=== PATIENT | male | born 1955 | race Caucasian/White ===

== ENCOUNTER 2020-02-27 15:23 | Outpatient (REF) | payer BC, SELFPAY | END 2020-02-27 15:24 | disposition home or self-care (01) | LOC: HO.LNP 15:23 | PROVIDERS: Visit Provider Internal Medicine | DX: Z20.828 Contact with and (suspected) exposure to other viral communicable diseases (principal) | CPT/HCPCS: U0003 ==

== ENCOUNTER → 2020-03-25 14:53 | Outpatient (BNVA) | payer SELFPAY | PROVIDERS: PCP Internal Medicine; Visit Provider Internal Medicine | DX: Z02.79 Encounter for issue of other medical certificate (principal) ==

== ENCOUNTER 2021-09-05 07:40 | Emergency (ER) | payer BC, SELFPAY ==
--- NOTE | ~2021-09-05 | CT_ITS ---
EXAMINATION: CT angio head neck CLINICAL INFORMATION: Dizziness. COMPARISON: CT scan of the head 09/05/2021. TECHNIQUE: Marketing Segment Manager images were obtained. A CT angiogram of the head and neck was performed in the arterial phase after the intravenous administration of 70 mL Omnipaque 350. Delayed postcontrast images of the head were also obtained. MIP reconstructions were generated in multiple orientations at the acquisition workstation. Multiple three-dimensional surface rendered images and maximum intensity projection images were generated on a dedicated 3-D lab workstation. Arterial stenoses are measured in accordance with NASCET criteria or similar method if applicable. This CT examination was performed using dose optimization techniques as appropriate, including one or more of the following: Automated exposure control, iterative reconstruction, and adjustment of technique factors (mA and/or kVp) according to patient size (this includes techniques or standardized protocols for targeted exams where dose is matched to indication/reason for exam). Total exam dose-length product 1524 mGy-cm FINDINGS: Head: Postcontrast images reveal no abnormal intracranial mass or enhancement. There is no intracranial mass effect or midline shift. No abnormal extra-axial collection. Lateral and third ventricles are normal. No hydrocephalus. Lozoya-white matter differentiation is preserved and there is no evidence of acute territorial infarct. The calvarium and skull base are intact. Mastoid air cells and middle ear cavities are well aerated. There is mild to moderate paranasal sinus disease primarily affecting the right anterior ethmoid air cells. CT angiogram neck: The aortic arch apex is normal. Origins of the major aortic branches are widely patent. Common carotid arteries and carotid bifurcations are normal. No stenosis of the extracranial internal carotid arteries. The cervical segments of the vertebral arteries as well as their origins are patent. CT angiogram head: Intracranial internal carotid arteries are normal. The intradural vertebral artery segments and basilar artery are normal. Anterior, middle, and posterior cerebral artery complexes are unremarkable. No intracranial large vessel occlusion. The timing of the contrast injection provides adequate opacification of the dural venous sinuses which are patent. Other: Soft tissues of the neck including the thyroid gland are normal. Visualized lung apices are clear. No acute osseous finding. Specifically no worrisome lytic or blastic osseous lesion. CT/CT angio head neck IMPRESSION: Unremarkable CT angiogram of the head and neck. No evidence of acute territorial infarct. No abnormal intracranial mass or enhancement. There is no stenosis of the cervical carotid or vertebral arteries. No intracranial large vessel occlusion.
--- NOTE | ~2021-09-05 | CT_ITS ---
EXAMINATION: CT HEAD WITHOUT CONTRAST CLINICAL INFORMATION: Dizziness. Headaches. COMPARISON: None TECHNIQUE: Contiguous axial imaging was performed from the skull base to vertex without intravenous administration of contrast. This CT examination was performed using dose optimization techniques as appropriate, variously including the following: *Automated exposure control *Adjustment of mA and/or kV according to patient size (this includes techniques or standardized protocols for targeted exams where dose is matched to indication/reason for exam; i.e. extremities or head) *Use of iterative reconstruction technique DLP: 759 mGy-cm FINDINGS: There is no evidence of acute intracranial hemorrhage or territorial infarction. No abnormal mass effect or midline shift is seen. [place]ozoya to white matter differentiation is well preserved. No extra-axial fluid collections are identified. The ventricles are normal in size. There is no abnormal attenuation within the brain parenchyma. The osseous structures and soft tissues are normal. The mastoid air cells and visualized portions of the paranasal sinuses are well aerated. CT/CT head/brain wo con IMPRESSION: No acute intracranial hemorrhage or mass effect.
[2021-09-05 07:47] VITALS: BP 145/82; PULSE 76; RESP 16; TEMP 35.7; O2SAT 97; BMI 29.4
[2021-09-05 08:00] LABS: MANUAL DIFF FLAG NO
[2021-09-05 08:02] LABS: Basophils Absolute Auto 0.1 X10*3/uL (0.0-0.2); Basophils Percent Auto 0.8 % (0-2); Eosinophils Absolute Auto 0.5 X10*3/uL (0.0-0.4); Eosinophils Percent Auto 6.8 % (0-4); Hematocrit 43.5 % (42.0-52.0); Imm Gran Abs Auto 0.01 X10*3/uL (0.00-0.03); Imm Gran Pct Auto 0.1 % (0.0-0.4); Lymphocytes Absolute Auto 2.4 X10*3/uL (1.2-4.9); Lymphocytes Percent Auto 31.1 % (20-40); Mean Corpuscular HGB Conc 34.5 g/dl (31.0-36.0); Mean Corpuscular Hemoglobin 30.9 pg (27.0-33.0); Mean Corpuscular Volume 89.7 fL (80.0-98.0); Mean Platelet Volume 8.8 fL (9.4-12.4); Monocytes Absolute Auto 0.6 X10*3/uL (0.1-1.2); Monocytes Percent Auto 7.9 % (2-11); Neutrophils Absolute Auto 4.2 x10*3/uL (2.0-8.3); Neutrophils Percent Auto 53.3 % (45-73); Platelet Count 244 X10*3/uL (160-400); Red Blood Count 4.85 X10*6/uL (4.60-5.80); Red Cell Distribution Width 12.9 % (11.0-16.0); White Blood Count 7.8 X10*3/uL (4.8-10.8)
[2021-09-05 08:16] LABS: Alanine Aminotransferase 20 U/L (0-40); Alkaline Phosphatase 62 U/L (39-117); Anion Gap 13 (12-20); Aspartate Amino Transferase 21 U/L (5-37); Bilirubin Total 0.9 mg/dL (0.0-1.0); Blood Urea Nitrogen 19 mg/dL (9-16); Calcium 9.6 mg/dL (8.4-10.2); Carbon Dioxide 20 mmol/L (22-29); Chloride 111 mmol/L (96-108); Creatinine Clr Calc Pharmacy 75.6; Estimated Glomerular Filt Rate > 60; Glucose Random 110 mg/dL (60-115); Potassium 3.8 mmol/L (3.3-5.1); Sodium 140 mmol/L (135-145); Total Protein 7.3 g/dL (6.5-8.0)
--- NOTE | 2021-09-05 10:08 | ECG_ITS ---
Test Reason : DIZZINESS Blood Pressure : / mmHG Vent. Rate : 054 BPM Atrial Rate : 054 BPM P-R Int : 148 ms QRS Dur : 090 ms QT Int : 416 ms P-R-T Axes : 043 011 050 degrees QTc Int : 394 ms Sinus bradycardia Otherwise normal ECG When compared with ECG of 17-SEP-2010 11:13, Vent. rate has decreased BY 30 BPM Referred By: Adamaris Rodriguez Electronically Signed By:Alpesh Marshall
--- NOTE | 2021-09-05 10:10 | ED_ITS ---
HPI - Dizziness General Chief Complaint: Dizziness Stated Complaint: VERTIGO Time Seen by Provider: 09/05/21 10:08 Source: patient and family Mode of arrival: ambulatory Limitations: no limitations History of Present Illness HPI Narrative: 66 yo male hx of HLD here with c/o on anytime he went to get up from laying down he felt severely dizzy with issue with equilibrium he also noted that day he felt off with vision in his left eye like it was blurry looking to one side that only lasted 5 minutes. He did notify his PCP who instructed him to monitor his symptoms. This continued on and off (not the vision) but dizziness with position changes up until this morning everytime he gets up from a lying po sition. He notes a headache R parietal for the last couple of months. He has had allergy and URI symptoms taking claritin PRN. This has not happened before he has no CP/SOB. No other complaints. MD elicited complaint: lightheadedness and disequilibrium Onset (ago): day(s) ( ) Timing: sudden onset and intermittent Severity: moderate Description: lightheadedness and off-balance Context: change in body position (anytime he gets up after laying down) Exacerbating factors: movement/ambulation and change in body position Relieving factors: remaining still Associated symptoms: nasal congestion and other (headache, feels near syncopal) Associated neuro symptoms: vision changes (prior to this noted L visual changes for 5 minutes while at work) Related Data Previous Rx's Medication Instructions Recorded doxycycline hyclate 100 mg capsule 100 mg PO BID 7 Days #14 cap 09/05/21 meclizine 25 mg tablet 25 mg PO TID PRN #30 tab 09/05/21 Allergies Allergy/AdvReac Type Severity Reaction Status Date / Time amoxicillin [AMOXICILLIN] Allergy Mild HIVES Unverified 12/27/19 15:07 Review of Systems Review of Systems: Constitutional : No Fever, No Chills, No Fatigue ENT/Mouth : No sore throat, pos Rhinorrhea Eyes: No Eye Pain, No Swelling, No Redness Cardiovascular : No Chest Pain, No SOB, No Dyspnea on Exertion Respiratory : No Cough, No Sputum Gastrointestinal : No Nausea, No Vomiting, No Diarrhea, No abdominal Pain Genitourinary : No Dysuria, No Urinary Frequency, No Hematuria, Musculoskeletal : No joint pain, No Myalgias, No Joint Swelling Skin : No Skin Lesions, No rash Neuro : No Weakness, No Numbness, pos Dizziness, positive Headache Psych : No Anxiety/Panic, No Depression Heme/Lymph: No Bruising, No Bleeding,No Lymphadenopathy Endocrine : No Polyuria, No Polydipsia All other systems reviewed and are negative [facility] Past Medical History Attestation statement: The following information was validated with the patient. Medical History (Updated 09/05/21 @ 15:14 by Adamaris Rodriguez DO) Hyperlipidemia Social History Social History (Updated 09/05/21 @ 10:25 by Adamaris Rodriguez DO) Patient Tobacco Use Status: Never used Tobacco Advance Directives: Yes Advance Directives Information Provided: No Advance Directives on File: No Physical Exam Vital Signs: Vital Signs: Last Vital Signs Temp 97.9 F 09/05/21 14:11 Pulse 55 09/05/21 14:11 Resp 18 09/05/21 14:11 BP 158/84 H 09/05/21 14:11 Pulse Ox 98 09/05/21 14:11 BMI result Body Mass Index 29.4 Appearance: Alert. Oriented X3. No acute distress. Eyes: Pupils equal, round and reactive to light. ENT: Pharynx normal. TMs normal Neck: Normal inspection. Neck supple. CVS: Normal heart rate and rhythm. Pulses normal. Respiratory: No respiratory distress. Breath sounds normal. Abdomen: Soft and nontender. Skin: Skin warm and dry. Normal skin color. Normal skin turgor. Extremities: No lower extremity edema. No calf ttp Neuro: Oriented X 3. No motor deficit. No sensory deficit. no drift, no ataxia Course Course Course Narrative: negative workup at this time will obtain CTA to look at carotids and vertebral arteries at this time CTA negative other than ethmoid sinusitis MDM - Dizziness MDM Narrative Medical decision making narrative: 66 yo male with hx of HLD here with c/o some visual changes 2 days ago and now with intermittent dizziness related position changes - does report some recent URI symptoms which could be triggering his dizziness. At this time will need labs, EKG, ortho VS, CT head for mass. IVF. Lab Data Result diagrams: 09/05/21 07:57 09/05/21 07:57 Labs: Lab Results 09/05/21 09/05/21 09/05/21 Range/Units 07:57 07:57 07:57 WBC 7.8 (4.8-10.8) X10*3/uL RBC 4.85 (4.60-5.80) X10*6/uL Hgb 15.0 (14.0-18.0) g/dl Hct 43.5 (42.0-52.0) % MCV 89.7 (80.0-98.0) fL MCH 30.9 (27.0-33.0) pg MCHC 34.5 (31.0-36.0) g/dl RDW 12.9 (11.0-16.0) % Plt Count 244 (160-400) X10*3/uL MPV 8.8 L (9.4-12.4) fL Immature Gran % (Auto) 0.1 (0.0-0.4) % Neut % (Auto) 53.3 (45-73) % Lymph % (Auto) 31.1 (20-40) % [place] % (Auto) 7.9 (2-11) % Eos % (Auto) 6.8 H (0-4) % Baso % (Auto) 0.8 (0-2) % Lymph # (Auto) 2.4 (1.2-4.9) X10*3/uL [place] # (Auto) 0.6 (0.1-1.2) X10*3/uL Eos # (Auto) 0.5 H (0.0-0.4) X10*3/uL Baso # (Auto) 0.1 (0.0-0.2) X10*3/uL Abs Immat Gran (auto) 0.01 (0.00-0.03) X10*3/uL Absolute Neuts (auto) 4.2 (2.0-8.3) x10*3/uL Absolute Nucleated RBC 0.000 (0.0-0.012) X10*3/uL Nucleated RBC % (auto) 0.0 (0.0-0.2) /100WBC Sodium 140 (135-145) mmol/L Potassium 3.8 (3.3-5.1) mmol/L Chloride 111 H (96-108) mmol/L Carbon Dioxide 20 L (22-29) mmol/L Anion Gap 13 (12-20) BUN 19 H (9-16) mg/dL Creatinine 1.13 (0.5-1.4) mg/dL Estim Creat Clear Calc 75.6 Estimated GFR > 60 Random Glucose 110 (60-115) mg/dL Calcium 9.6 (8.4-10.2) mg/dL Total Bilirubin 0.9 (0.0-1.0) mg/dL AST 21 (5-37) U/L ALT 20 (0-40) U/L Alkaline Phosphatase 62 (39-117) U/L Troponin I High Sens < 3.5 (<3.5-35.0) ng/L Total Protein 7.3 (6.5-8.0) g/dL Albumin 4.0 (3.5-5.0) g/dL COVID-19 (IZZY) (Negative) COVID-19 Clin Com 09/05/21 Range/Units 10:15 WBC (4.8-10.8) X10*3/uL RBC (4.60-5.80) X10*6/uL Hgb (14.0-18.0) g/dl Hct (42.0-52.0) % MCV (80.0-98.0) fL MCH (27.0-33.0) pg MCHC (31.0-36.0) g/dl RDW (11.0-16.0) % Plt Count (160-400) X10*3/uL MPV (9.4-12.4) fL Immature Gran % (Auto) (0.0-0.4) % Neut % (Auto) (45-73) % Lymph % (Auto) (20-40) % [place] % (Auto) (2-11) % Eos % (Auto) (0-4) % Baso % (Auto) (0-2) % Lymph # (Auto) (1.2-4.9) X10*3/uL [place] # (Auto) (0.1-1.2) X10*3/uL Eos # (Auto) (0.0-0.4) X10*3/uL Baso # (Auto) (0.0-0.2) X10*3/uL Abs Immat Gran (auto) (0.00-0.03) X10*3/uL Absolute Neuts (auto) (2.0-8.3) x10*3/uL Absolute Nucleated RBC (0.0-0.012) X10*3/uL Nucleated RBC % (auto) (0.0-0.2) /100WBC Sodium (135-145) mmol/L Potassium (3.3-5.1) mmol/L Chloride (96-108) mmol/L Carbon Dioxide (22-29) mmol/L Anion Gap (12-20) BUN (9-16) mg/dL Creatinine (0.5-1.4) mg/dL Estim Creat Clear Calc Estimated GFR Random Glucose (60-115) mg/dL Calcium (8.4-10.2) mg/dL Total Bilirubin (0.0-1.0) mg/dL AST (5-37) U/L ALT (0-40) U/L Alkaline Phosphatase (39-117) U/L Troponin I High Sens (<3.5-35.0) ng/L Total Protein (6.5-8.0) g/dL Albumin (3.5-5.0) g/dL COVID-19 (IZZY) Negative (Negative) COVID-19 Clin Com See Note ECG Data Attestation: I personally reviewed and interpreted this ECG as follows: ECG interpretation date: 09/05/21 ECG interpretation time: 10:40 Interpretation: Rate: 54 Rhythm: sinus bradycardid Kirkman: normal Normal P waves. Normal LILLIE. Normal QRS complex. ST T wave : normal no VANESSA qTC: normal prior studies: no acute ischemia The study has been interpreted contemporaneously by me. . Discharge Plan Discharge Clinical Impression: Dizziness Acute ethmoidal sinusitis Qualifiers: Recurrence: non-recurrent Qualified Code(s): J01.20 - Acute ethmoidal sinusitis, unspecified Patient Disposition: Home, Self-Care Instructions: Sinusitis (ED), Dizziness (ED) Additional Instructions: return to ED for any worsening symptoms or concerns follow up with your doctor this week CT/CT angio head neck IMPRESSION: Unremarkable CT angiogram of the head and neck. No evidence of acute territorial infarct. No abnormal intracranial mass or enhancement. There is no stenosis of the cervical carotid or vertebral arteries. No intracranial large vessel occlusion.? Prescriptions: New doxycycline hyclate 100 mg capsule 100 mg PO BID 7 Days Qty: 14 0RF meclizine 25 mg tablet 25 mg PO TID PRN (Reason: dizziness) Qty: 30 0RF Stand Alone Forms: Work/School Release
[2021-09-05 10:17] VITALS: BP 151/79; PULSE 74; RESP 18; O2SAT 100
[2021-09-05 10:29] VITALS: BP 151/79; PULSE 60
[2021-09-05 10:30] VITALS: BP 150/100; BP 153/93; PULSE 66; PULSE 71
[2021-09-05 10:37] LABS: Troponin-I High Sensitivity < 3.5 ng/L (<3.5-35.0)
[2021-09-05 10:52] LABS: COVID-19 Test Negative (Negative); IDNOW Serial# 16C4AD1C
[2021-09-05] MEDS: Meclizine HCl 25 MG TABLET PO (10:55)
[2021-09-05] MEDS: 0.9 % Sodium Chloride 1,000 ML 999 ML IV (10:55)
[2021-09-05 12:53] VITALS: BP 146/85; PULSE 68; RESP 16; O2SAT 97
[2021-09-05] MEDS: iohexoL 350 MG/ML 75 ML INFUS..BTL 70 ML IV (14:10)
[2021-09-05 14:11] VITALS: BP 158/84; PULSE 55; RESP 18; TEMP 36.6; O2SAT 98
== END 2021-09-05 15:55 | disposition home or self-care (01) ==
PROVIDERS: Emergency Provider Emergency Medicine; PCP Internal Medicine
DX: J01.20 Acute ethmoidal sinusitis, unspecified (principal); R42 Dizziness and giddiness; R51.9 Headache, unspecified; Z79.899 Other long term (current) drug therapy; Z20.822 Contact with and (suspected) exposure to COVID-19
CPT/HCPCS: 36415; 70450; 70496; 70498; 80053; 84484; 85025; 87635; 93005; 99283; Q9967

== ENCOUNTER 2021-09-12 07:20 | Outpatient (REF) | payer BC, SELFPAY ==
[2021-09-12 08:39] LABS: Cholesterol 171 mg/dL; HDL Cholesterol 52 mg/dL; LDL Cholesterol Calculated 106 mg/dl; Triglycerides 68 mg/dL
[2021-09-12 08:44] LABS: Prostate Specific Antigen 0.49 ng/mL (<0.05-4.0)
== END 2021-09-12 07:21 | disposition home or self-care (01) ==
LOC: HO.LAB 07:20
PROVIDERS: PCP Internal Medicine; Visit Provider Internal Medicine
DX: Z12.5 Encounter for screening for malignant neoplasm of prostate (principal); N40.0 Benign prostatic hyperplasia without lower urinary tract symptoms; E78.00 Pure hypercholesterolemia, unspecified
CPT/HCPCS: 36415; 80061; 84153

== ENCOUNTER → 2022-02-17 15:11 | Outpatient (BNVA) | payer SELFPAY | PROVIDERS: PCP Internal Medicine; Visit Provider Physician Assistant | DX: Z02.79 Encounter for issue of other medical certificate (principal) ==

== ENCOUNTER 2023-07-18 12:08 | Outpatient (REF) | payer BC, SELFPAY ==
--- NOTE | ~2023-07-18 | XR_ITS ---
EXAMINATION: XR CHEST CLINICAL INFORMATION: Shortness of breath. COMPARISON: Chest radiograph dated 09/17/2010. TECHNIQUE: 2 views of the chest were obtained. FINDINGS: The lungs are clear. The cardiomediastinal silhouette is normal in size. There is no pleural effusion or pneumothorax. No acute osseous abnormality. XR/XR chest 2V IMPRESSION: No acute cardiopulmonary findings.
[2023-07-18 12:27] LABS: MANUAL DIFF FLAG NO
[2023-07-18 12:41] LABS: Basophils Absolute Auto 0.1 X10*3/uL (0.0-0.2); Basophils Percent Auto 0.7 % (0-2); Eosinophils Absolute Auto 0.2 X10*3/uL (0.0-0.4); Eosinophils Percent Auto 2.3 % (0-4); Hematocrit 43.2 % (42.0-52.0); Hemoglobin 14.6 g/dl (14.0-18.0); Imm Gran Abs Auto 0.02 X10*3/uL (0.00-0.03); Imm Gran Pct Auto 0.2 % (0.0-0.4); Mean Corpuscular HGB Conc 33.8 g/dl (31.0-36.0); Mean Corpuscular Hemoglobin 30.4 pg (27.0-33.0); Mean Platelet Volume 8.9 fL (9.4-12.4); Monocytes Absolute Auto 0.7 X10*3/uL (0.1-1.2); Monocytes Percent Auto 8.4 % (2-11); Neutrophils Absolute Auto 5.2 x10*3/uL (2.0-8.3); Neutrophils Percent Auto 63.4 % (45-73); Platelet Count 223 X10*3/uL (160-400); Red Cell Distribution Width 13.2 % (11.0-16.0); White Blood Count 8.1 X10*3/uL (4.8-10.8)
[2023-07-18 13:03] LABS: D Dimer High Sensitivity 3345 NG/ML
[2023-07-18 13:10] LABS: Alanine Aminotransferase 15 U/L (0-40); Albumin Level 4.2 g/dL (3.5-5.0); Alkaline Phosphatase 82 U/L (39-117); Anion Gap 10 (12-20); Aspartate Amino Transferase 21 U/L (5-37); Bilirubin Total 0.7 mg/dL (0.0-1.0); Blood Urea Nitrogen 17 mg/dL (9-16); C Reactive Protein 1.16 mg/dL (< or = 0.50); Calcium 9.9 mg/dL (8.4-10.2); Carbon Dioxide 24 mmol/L (22-29); Chloride 108 mmol/L (96-108); Cholesterol 166 mg/dL (<200); Estimated Glomerular Filt Rate 59; Glucose Random 94 mg/dL (60-115); Sodium 138 mmol/L (135-145); Total Protein 8.2 g/dL (6.5-8.0)
[2023-07-18 13:14] LABS: B Type Natriuretic Peptide 46 pg/mL (<100)
[2023-07-19 11:04] LABS: Free Prostate Spec Ag 0.2 ng/mL; Percent Free Prostate Spec Ag 29 % (calc) (>25); Prostate Specific Ag Total 0.7 ng/mL (< OR = 4.0)
== END 2023-07-18 12:09 | disposition home or self-care (01) ==
LOC: HO.LAB 12:08
PROVIDERS: PCP Internal Medicine; Visit Provider Internal Medicine
DX: Z12.5 Encounter for screening for malignant neoplasm of prostate (principal); R06.2 Wheezing; E78.00 Pure hypercholesterolemia, unspecified; R35.1 Nocturia
CPT/HCPCS: 36415; 71046; 80053; 82465; 82550; 83880; 84154; 85025; 85379; 86140

== ENCOUNTER 2023-07-18 13:17 | Inpatient (IN) | payer BC, MEDICARE, SELFPAY ==
--- NOTE | ~2023-07-18 | CT_ITS ---
EXAMINATION: CT ANGIOGRAM OF THE CHEST WITH AND WITHOUT CONTRAST (CT PULMONARY ANGIOGRAM FOR PE) CLINICAL INFORMATION: Reason for Exam SOB. Elevated D dimer. PE? COMPARISON: None TECHNIQUE: Prior to contrast administration, noncontrast localization images were obtained. Subsequently, multidetector volumetric imaging was performed from the thoracic inlet to below the diaphragms following the administration of 65 mL Omnipaque 350 intravenous contrast. No contrast reaction reported Sagittal, coronal, and MIP oblique sagittal reformatted images were obtained on the CT workstation, uploaded to PACS, and reviewed. This CT examination was performed using dose optimization techniques as appropriate, variously including the following: *Automated exposure control *Adjustment of mA and/or kV according to patient size (this includes techniques or standardized protocols for targeted exams where dose is matched to indication/reason for exam; i.e. extremities or head) *Use of iterative reconstruction technique Total exam dose-length product 382 mGy-cm FINDINGS: QUALITY OF STUDY/CONTRAST BOLUS: Satisfactory. PULMONARY ARTERIES: There are multiple occlusive and nonocclusive clots identified in left and right pulmonary arteries without saddle bullae seen. THORACIC AORTA: No aneurysm. LUNG: No focal consolidation, nodules or masses. PLEURA: No pleural effusion or pneumothorax. MEDIASTINUM: Normal heart size. No pericardial effusion. No hilar or mediastinal lymphadenopathy. No evidence of septal bowing or right heart strain. CORONARY ARTERY CALCIFICATION: None visualized on this study. CHEST WALL/AXILLA: No axillary or internal mammary lymphadenopathy. OSSEOUS STRUCTURES: No acute or suspicious osseous abnormality. UPPER ABDOMEN: Unremarkable. No reflux of contrast into the hepatic veins to suggest elevated right heart pressures. CT/CT angio chest PE protocol IMPRESSION: Extensive bilateral pulmonary emboli. No evidence of right heart strain. VTE: positive. This critical result was discussed with ADEN Caballero at 1645 on 07/18/2023 and it was ascertained that the content and urgency of the report was understood at the time of direct communication.
--- NOTE | ~2023-07-18 | US_ITS ---
EXAMINATION: US VENOUS ULTRASOUND WITH DOPPLER LOWER EXTREMITY, BILATERAL CLINICAL INFORMATION: Swelling COMPARISON: Left lower extremity swelling on 06/09/2015 TECHNIQUE: Ultrasound of the deep veins is performed from the hip to the calf with compression sonography and color and pulse Doppler assessment. Spectral analysis with color-flow imaging is performed. FINDINGS: RIGHT: There is normal venous compression and respiratory variation and augmented flow. The visualized common femoral vein, superficial femoral vein, profunda femoral vein, popliteal vein, and the trifurcation region shows no evidence of deep venous thrombosis. There is no significant popliteal fossa cyst. LEFT: There is normal venous compression and respiratory variation and augmented flow. The visualized common femoral vein, superficial femoral vein, profunda femoral vein, popliteal vein, and the trifurcation region shows no evidence of deep venous thrombosis. There is a 3.8 x 1.1 x 1.5 cm complex fluid collection left popliteal fossa. Nonocclusive thrombus in the left gastrocnemius vein. If the patient's symptoms persist, followup ultrasound in 5 days 7 days might be of value to exclude proximal propagation from a non-visualized calf vein. US/US venous duplex LE BI IMPRESSION: Nonocclusive left gastrocnemius vein thrombus.
[2023-07-18 13:35] VITALS: BP 173/101; PULSE 88; RESP 18; TEMP 36.8; O2SAT 97; BMI 29.4
--- NOTE | 2023-07-18 13:36 | ECG_ITS ---
Test Reason : SOB Blood Pressure : / mmHG Vent. Rate : 070 BPM Atrial Rate : 070 BPM P-R Int : 158 ms QRS Dur : 084 ms QT Int : 380 ms P-R-T Axes : 053 -08 037 degrees QTc Int : 410 ms Normal sinus rhythm Normal ECG When compared with ECG of 05-SEP-2021 10:04, No significant change was found Referred By: Jignesh Caballero Electronically Signed By:Alpesh Marshall
--- NOTE | 2023-07-18 13:41 | ED.GENADULT ---
HPI - General Adult General Chief complaint: Recheck/Abnormal Lab/Rx Stated complaint: abd normal test results Time Seen by Provider: 07/18/23 14:01 Related Data Previous Rx's ?Medication ?Instructions ?Recorded doxycycline hyclate 100 mg capsule 100 mg PO BID 7 days #14 caps 09/05/21 meclizine 25 mg tablet 25 mg PO TID PRN dizziness #30 tabs 09/05/21 Allergies Allergy/AdvReac Type Severity Reaction Status Date / Time amoxicillin [AMOXICILLIN] Allergy Mild HIVES Unverified 07/18/23 13:38 [facility] Past Medical History Medical History Hyperlipidemia Social History Social History Patient Tobacco Use Status: Never used Tobacco Advance Directives: No Advance Directives Information Provided: No Physical Exam ED Vital Signs: Vital Signs - 24 hr 07/18/23 13:35 Temperature 98.3 F Pulse Rate 88 Respiratory Rate 18 Blood Pressure 173/101 H Pulse Oximetry 97 Oxygen Delivery Method Room Air BMI result Body Mass Index 29.4 Course Course Course Narrative: RME: 68-year-old male presents ED for evaluation for PE. Patient having shortness of breath on exertion this past weekend primary care sent D-dimer came back positive for 3000. Patient was called to come to the ED. Patient states shortness of breath on exertion still present. Patient hypertensive. Charge nurse informed to bring patient to the ED. Repeat labs chest CTA ordered. Medical Decision Making Lab Data 07/18/23 13:55 07/18/23 13:55 Labs: Lab Results 07/18/23 Range/Units 13:55 WBC 8.3 (4.8-10.8) X10*3/uL RBC 4.67 (4.60-5.80) X10*6/uL Hgb 14.5 (14.0-18.0) g/dl Hct 41.9 L (42.0-52.0) % MCV 89.7 (80.0-98.0) fL MCH 31.0 (27.0-33.0) pg MCHC 34.6 (31.0-36.0) g/dl RDW 13.0 (11.0-16.0) % Plt Count 207 (160-400) X10*3/uL MPV 8.9 L (9.4-12.4) fL Immature Gran % (Auto) 0.2 (0.0-0.4) % Neut % (Auto) 66.8 (45-73) % Lymph % (Auto) 21.9 (20-40) % [place] % (Auto) 8.0 (2-11) % Eos % (Auto) 2.4 (0-4) % Baso % (Auto) 0.7 (0-2) % Lymph # (Auto) 1.8 (1.2-4.9) X10*3/uL [place] # (Auto) 0.7 (0.1-1.2) X10*3/uL Eos # (Auto) 0.2 (0.0-0.4) X10*3/uL Baso # (Auto) 0.1 (0.0-0.2) X10*3/uL Abs Immat Gran (auto) 0.02 (0.00-0.03) X10*3/uL Absolute Neuts (auto) 5.6 (2.0-8.3) x10*3/uL Absolute Nucleated RBC 0.000 (0.0-0.012) X10*3/uL Nucleated RBC % (auto) 0.0 (0.0-0.2) /100WBC PT 13.2 (11.1-13.3) SEC INR 1.1 (0.9-1.1) APTT 29.8 (26.0-36.8) SEC Sodium 139 (135-145) mmol/L Potassium 3.9 (3.3-5.1) mmol/L Chloride 107 (96-108) mmol/L Carbon Dioxide 23 (22-29) mmol/L Anion Gap 13 (12-20) BUN 16 (9-16) mg/dL Creatinine 1.20 (0.5-1.4) mg/dL Estim Creat Clear Calc 69.3 Estimated GFR > 60 Random Glucose 89 (60-115) mg/dL Calcium 9.6 (8.4-10.2) mg/dL Total Bilirubin 0.7 (0.0-1.0) mg/dL AST 25 (5-37) U/L ALT 16 (0-40) U/L Alkaline Phosphatase 81 (39-117) U/L Total Protein 8.1 H (6.5-8.0) g/dL Albumin 4.1 (3.5-5.0) g/dL Discharge Plan Discharge Prescriptions: No Action doxycycline hyclate 100 mg capsule 100 mg PO BID 7 Days Qty: 14 0RF meclizine 25 mg tablet 25 mg PO TID PRN (Reason: dizziness) Qty: 30 0RF Print Language: Camb[place]ian
[2023-07-18 13:59] LABS: MANUAL DIFF FLAG NO
[2023-07-18 14:02] LABS: Basophils Absolute Auto 0.1 X10*3/uL (0.0-0.2); Basophils Percent Auto 0.7 % (0-2); Eosinophils Absolute Auto 0.2 X10*3/uL (0.0-0.4); Eosinophils Percent Auto 2.4 % (0-4); Hematocrit 41.9 % (42.0-52.0); Hemoglobin 14.5 g/dl (14.0-18.0); Imm Gran Abs Auto 0.02 X10*3/uL (0.00-0.03); Imm Gran Pct Auto 0.2 % (0.0-0.4); Lymphocytes Absolute Auto 1.8 X10*3/uL (1.2-4.9); Lymphocytes Percent Auto 21.9 % (20-40); Mean Corpuscular HGB Conc 34.6 g/dl (31.0-36.0); Mean Corpuscular Volume 89.7 fL (80.0-98.0); Mean Platelet Volume 8.9 fL (9.4-12.4); Monocytes Absolute Auto 0.7 X10*3/uL (0.1-1.2); Neutrophils Absolute Auto 5.6 x10*3/uL (2.0-8.3); Neutrophils Percent Auto 66.8 % (45-73); Platelet Count 207 X10*3/uL (160-400); Red Blood Count 4.67 X10*6/uL (4.60-5.80); White Blood Count 8.3 X10*3/uL (4.8-10.8)
--- NOTE | 2023-07-18 14:02 | ED.GENADULT ---
HPI - General Adult General Chief complaint: Recheck/Abnormal Lab/Rx Stated complaint: abd normal test results Time Seen by Provider: 07/18/23 14:01 Source: patient and family Mode of arrival: ambulatory Limitations: no limitations History of Present Illness HPI narrative: 68-year-old male history of hyperlipidemia, dizziness presenting to the emergency department for evaluation of elevated D-dimer, was told by his PCP, he reports he had a D-dimer drawn because over the past 3 days patient has been having shortness of breath worse with exertion. He reports he is very active he goes on walks frequently however has not been able to do this as much as usual due to shortness of breath with exertion. He does not report any associated chest discomfort. No history of DVT or PE. Patient quit smoking 21 years ago. No recent travel. Patient reports years ago he had a left complex fracture to his lower extremity, reports that recently his left lower extremity has also been lightly more swollen than his right. No associated numbness or tingling. Patient denies chest pain, nausea, vomiting, abdominal pain, headache, vision changes, dizziness and weakness. Patient not on blood thinners. No history of DVT or PE, no history of hypercoagulable disorders Related Data Previous Rx's ?Medication ?Instructions ?Recorded doxycycline hyclate 100 mg capsule 100 mg PO BID 7 days #14 caps 09/05/21 meclizine 25 mg tablet 25 mg PO TID PRN dizziness #30 tabs 09/05/21 Allergies Allergy/AdvReac Type Severity Reaction Status Date / Time amoxicillin [AMOXICILLIN] Allergy Mild HIVES Unverified 07/18/23 13:38 Review of Systems Review of Systems: Yes all other systems are reviewed and are negative [facility] Past Medical History Attestation statement: The following information was validated with the patient. Source: old records reviewed and nursing notes reviewed Medical History Hyperlipidemia Social History Social History Patient Tobacco Use Status: Never used Tobacco Smoked in Last 30 Days: No Use of substances other than those prescribed or required for medical reasons: No Advance Directives: No Advance Directives Information Provided: No Physical Exam ED Vital Signs: Vital Signs - 24 hr 07/18/23 13:35 07/18/23 16:21 Temperature 98.3 F 97.8 F Pulse Rate 88 87 Respiratory Rate 18 12 Blood Pressure 173/101 H 149/90 H Pulse Oximetry 97 97 Oxygen Delivery Method Room Air Room Air BMI result Body Mass Index 29.4 htn noted Appearance: Alert.? Oriented X3.? No acute distress.? Head: Normocephalic, atraumatic, no step-offs or deformities Eyes: Pupils equal, round and reactive to light.? Neck: Normal inspection.? Neck supple.? CVS: Normal heart rate and rhythm.? Pulses normal.? Respiratory: No respiratory distress.? Breath sounds normal.? Abdomen: Soft and nontender.? Skin: Skin warm and dry.? Normal skin color.? Normal skin turgor.? Extremities: No lower extremity edema.? No calf ttp. 5/5 strength to bilateral upper and lower extremities Back: No midline tenderness, no C-spine tenderness, full range of motion, no CVA tenderness bilaterally Neuro: Oriented X 3.? No motor deficit.? No sensory deficit. CN 2-12 intact Course Reevaluation(s) Reevaluation #1: CBC unremarkable. Chemistry pending. D-dimer earlier 3345. Coags pending. CTA pending. Will continue to monitor Time: 14:07 Reevaluation #2: I looked at the CT im concerned for PE caled for stat read Hypodermically stable 97% on RA will wait to give heprain when radiology confirms dx. Time: 16:00 Reevaluation #3: Sign out to Dev SIDHU pending reach of CTA and US LLE Time: 16:22 Additional Reevaluation(s): Patient received in sign-out at change of shift pending CT angiography. This confirms extensive bilateral PE without evidence of heart strain. Patient's vital signs are stable, troponin 7.9, BNP is 46, both within normal limits. Started heparin standard dose and discussed with the hospitalist for admission. Medications Administered Discontinued Medications Generic Name Dose Route Start Last Admin Trade Name Freq PRN Reason Stop Dose Admin Iohexol 100 ml 07/18/23 14:48 07/18/23 14:48 Iohexol 350 Mg/Ml 100 Ml Infus..Btl IV 07/18/23 14:49 65 ml ONCE ONE Administration Medical Decision Making Medical Decision Making [facility] Narrative: 1403 68 yo M presents with shortness of breath on exertion for the past 3 days. Physical exam benign hypertension noted on vital signs. This could be secondary to anxiety. History and physical exam concerning for pulmonary embolism versus pneumonia. Unlikely ACS, dissection, acute respiratory distress. Left lower extremity with palpable pulses likely dependent edema versus DVT. Unlikely arterial occlusion or acute threat to limb. Plan at this time will obtain basic labs, CTA of chest. Differential Diagnosis Differential Diagnoses: The differential diagnosis associated with the presentation includes History and physical exam concerning for pulmonary embolism versus pneumonia. Unlikely ACS, dissection, acute respiratory distress. Left lower extremity with palpable pulses likely dependent edema versus DVT. Unlikely arterial occlusion or acute threat to limb. Admission/Observation Consideration of admission/observation: Escalation of care including admission/observation considered Likely Lab Data MDM Lab Attestation statement: I reviewed the patient's lab results. 07/18/23 13:55 07/18/23 13:55 Labs: Lab Results 07/18/23 07/18/23 Range/Units 13:55 17:30 WBC 8.3 (4.8-10.8) X10*3/uL RBC 4.67 (4.60-5.80) X10*6/uL Hgb 14.5 (14.0-18.0) g/dl Hct 41.9 L (42.0-52.0) % MCV 89.7 (80.0-98.0) fL MCH 31.0 (27.0-33.0) pg MCHC 34.6 (31.0-36.0) g/dl RDW 13.0 (11.0-16.0) % Plt Count 207 (160-400) X10*3/uL MPV 8.9 L (9.4-12.4) fL Immature Gran % (Auto) 0.2 (0.0-0.4) % Neut % (Auto) 66.8 (45-73) % Lymph % (Auto) 21.9 (20-40) % [place] % (Auto) 8.0 (2-11) % Eos % (Auto) 2.4 (0-4) % Baso % (Auto) 0.7 (0-2) % Lymph # (Auto) 1.8 (1.2-4.9) X10*3/uL [place] # (Auto) 0.7 (0.1-1.2) X10*3/uL Eos # (Auto) 0.2 (0.0-0.4) X10*3/uL Baso # (Auto) 0.1 (0.0-0.2) X10*3/uL Abs Immat Gran (auto) 0.02 (0.00-0.03) X10*3/uL Absolute Neuts (auto) 5.6 (2.0-8.3) x10*3/uL Absolute Nucleated RBC 0.000 (0.0-0.012) X10*3/uL Nucleated RBC % (auto) 0.0 (0.0-0.2) /100WBC PT 13.2 13.6 H (11.1-13.3) SEC INR 1.1 1.1 (0.9-1.1) APTT 29.8 (26.0-36.8) SEC aPTT Heparin Protocol 29.0 L (53-77.9) SEC Sodium 139 (135-145) mmol/L Potassium 3.9 (3.3-5.1) mmol/L Chloride 107 (96-108) mmol/L Carbon Dioxide 23 (22-29) mmol/L Anion Gap 13 (12-20) BUN 16 (9-16) mg/dL Creatinine 1.20 (0.5-1.4) mg/dL Estim Creat Clear Calc 69.3 Estimated GFR > 60 Random Glucose 89 (60-115) mg/dL Calcium 9.6 (8.4-10.2) mg/dL Total Bilirubin 0.7 (0.0-1.0) mg/dL AST 25 (5-37) U/L ALT 16 (0-40) U/L Alkaline Phosphatase 81 (39-117) U/L Troponin I High Sens 7.9 (<3.5-35.0) ng/L Total Protein 8.1 H (6.5-8.0) g/dL Albumin 4.1 (3.5-5.0) g/dL Independent Interpretation I performed an independent interpretation of an: EKG (Vent. Rate : 070 BPM Atrial Rate : 070 BPM P-R Int : 158 ms QRS Dur : 084 ms QT Int : 380 ms P-R-T Axes : 053 -08 037 degrees QTc Int : 410 ms Normal sinus rhythm Normal ECG When compared with ECG of 05-SEP-2021 10:04, No significant change was found ) and CT Scan Radiology Impression Discussion of test interpretation with radiology: I have reviewed the radiologist's reading. Chronic Conditions Patient?s care impacted by: Other (HLD, dizziness ) Critical Care Time Critical Care Time Critical Care Time: Yes Total Critical Care Time: 45 Attestation: I attest to this time spent taking care of the patient, obtaining history, physical, reviewing labs, imaging, speaking to my attending, speaking to specialist. Discharge Plan Discharge Clinical Impression: Pulmonary embolism, bilateral Patient Disposition: Admitted As Inpatient Prescriptions: No Action doxycycline hyclate 100 mg capsule 100 mg PO BID 7 Days Qty: 14 0RF meclizine 25 mg tablet 25 mg PO TID PRN (Reason: dizziness) Qty: 30 0RF Print Language: [place]
[2023-07-18 14:06] LABS: INTERNATIONAL NORM RATIO 1.1 (0.9-1.1); Prothrombin Time 13.2 SEC (11.1-13.3)
[2023-07-18 14:09] LABS: Partial Thromboplastin Time 29.8 SEC (26.0-36.8)
[2023-07-18 14:19] LABS: Alanine Aminotransferase 16 U/L (0-40); Albumin Level 4.1 g/dL (3.5-5.0); Alkaline Phosphatase 81 U/L (39-117); Anion Gap 13 (12-20); Aspartate Amino Transferase 25 U/L (5-37); Bilirubin Total 0.7 mg/dL (0.0-1.0); Blood Urea Nitrogen 16 mg/dL (9-16); Calcium 9.6 mg/dL (8.4-10.2); Carbon Dioxide 23 mmol/L (22-29); Chloride 107 mmol/L (96-108); Creatinine Clr Calc Pharmacy 69.3; Estimated Glomerular Filt Rate > 60; Glucose Random 89 mg/dL (60-115); Potassium 3.9 mmol/L (3.3-5.1); Sodium 139 mmol/L (135-145); Total Protein 8.1 g/dL (6.5-8.0)
[2023-07-18 14:27] LABS: Troponin-I High Sensitivity 7.9 ng/L (<3.5-35.0)
--- NOTE | 2023-07-18 14:40 | PC.NURSE ---
PT TO CT SCAN VIA STRETCHER.
[2023-07-18] MEDS: iohexoL 350 MG/ML 100 ML INFUS..BTL IV (14:48)
[2023-07-18 16:21] VITALS: BP 149/90; PULSE 87; RESP 12; TEMP 36.6; O2SAT 97
[2023-07-18 17:40] LABS: INTERNATIONAL NORM RATIO 1.1 (0.9-1.1); Prothrombin Time 13.6 SEC (11.1-13.3)
[2023-07-18] MEDS: Heparin Sodium,Porcine/1/2NS 25,000 UNIT/250 ML IV.SOLN 13.02 UNIT IVCONT (18:31)
--- NOTE | 2023-07-18 18:46 | PHA.MEDREC ---
Pharmacy Consult ? Medication Reconciliation Pharmacy has completed the medication reconciliation. Spoke to patient and confirmed medication list.
[2023-07-18 19:13] VITALS: BP 131/83; PULSE 78; RESP 16; O2SAT 94
--- NOTE | 2023-07-18 19:19 | P.HPHOSP_ITS ---
History of Present Illness Date of Service: 07/18/23 Attending physician on admission: Tammy Pak Chief Complaint: sob 68-year-old male with history of hyperlipidemia presents to ED earlier today for evaluation dyspnea on exertion which he noticed on Tuesday. He states he is very active, hiking and walking often and developed dyspnea on exertion on Tuesday which worsened yesterday while on a hike. He states there was also mild headache. Denies any fevers, chills, recent illness, lightheadedness, palpitations, shortness of breath at rest, wheezing, chest pain. He does have a remote history of fracture in the left lower leg requiring ORIF and since then has had swelling in the left lower extremity which he does feel worsened around several weeks ago. Denies calf tenderness. He denies any recent travel, recent surgeries or prolonged hospital stay. No personal history or known family history of blood clots or clotting disorders. No history of cancer though states his mother did have lung cancer but was a heavy smoker. He reports he has a former smoker with 20 pack year history who quit 21 years ago. Denies any illicit drug use or alcohol use. On arrival, vital signs stable. Hematology studies unremarkable. Renal function electrolyte levels normal. Troponin 7.9. PT 13.6, INR 1.1, PTT 29.8. D-dimer >3300. Venous duplex left lower extremity shows nonocclusive left gastrocnemius vein thrombus. CTA chest shows extensive bilateral pulmonary emboli but no evidence of right heart strain. In the ED, has been started on heparin drip per protocol. He will be admitted for further management of bilateral PE. Review of Systems 2 Review of Systems: General: No fevers, malaise, unintentional weight loss HEENT: No blurred vision, diplopia. No sore throat, nasal congestion, rhinorrhea, sinus pain, ear pain Cardiovascular: No chest pain, palpitations, or leg edema Respiratory: +[place]. No shortness of breath at rest, wheezing, cough GI: No abdominal pain, nausea, vomiting, diarrhea, constipation, melena, hematochezia : No dysuria, hematuria, increased urinary frequency, decreased urinary output MSK: No myalgia, back pain Neuro: No headaches, weakness, paresthesias Skin: No rashes or lesions PMF Medical History Hyperlipidemia Social History Patient Tobacco Use Status: Never used Tobacco Smoked in Last 30 Days: No Use of substances other than those prescribed or required for medical reasons: No Advance Directives: No Advance Directives Information Provided: No Nutrition Risks: No Nutritional Risk service: No Meds Allergies Allergy/AdvReac Type Severity Reaction Status Date / Time amoxicillin [AMOXICILLIN] Allergy Mild HIVES Unverified 07/18/23 13:38 Active Medications: Current Medications Heparin Sodium (Porcine) (Heparin Sodium,Porcine 5,000 Unit/Ml Vial) 3,700 unit 40 unit/kg (3700 unit) IVPUSH PROTOCOL BOLUS PRN; Protocol PRN Reason: 40 unit/kg - Heparin Protocol Heparin Sodium (Porcine) (Heparin Sodium,Porcine 5,000 Unit/Ml Vial) 7,400 unit 80 unit/kg (7400 unit) IVPUSH PROTOCOL BOLUS PRN; Protocol PRN Reason: 80 unit/kg - Heparin Protocol Heparin Sodium/Sodium Chloride (Heparin Sodium,Porcine/1/2ns) 25,000 unit in 250 mls @ 0 mls/hr IVCONT .Q0M COREY; Protocol Last Admin: 07/18/23 18:31 Dose: 14 units/kg/hr, 13.02 mls/hr Home Medications ?Medication ?Instructions ?Recorded ?Confirmed ?Last Taken ?Type simvastatin 20 mg tablet 20 mg PO DAILY 07/18/23 07/18/23 07/17/23 History Physical Exam 2 Vital Signs and Narrative: Vital Signs: Last Vital Signs Temp 97.8 F 07/18/23 16:21 Pulse 78 07/18/23 19:13 Resp 16 07/18/23 19:13 BP 131/83 07/18/23 19:13 Pulse Ox 94 07/18/23 19:13 O2 Del Method Room Air 07/18/23 19:13 BMI result Body Mass Index 29.4 Constitutional - Awake and Alert, No apparent distress Eyes - PERRLA, EOMI Cardiovascular - S1S2, RRR, No edema Respiratory - Normal lung expansion, Normal respiratory effort, No respiratory distress, CTA bilaterally Gastrointestinal - NT / ND; +BS; No rebound or guarding Extremities - no calf tenderness bilaterally or palpable cords, mild swelling L ankle compared to right Skin - Warm/Dry Neurological - Alert & oriented x3 Psychological - Appropriate affect Results Labs 07/19/23 04:27 07/19/23 04:27 Labs: Laboratory Results - last 24 hr 07/18/23 07/18/23 13:55 17:30 MCV 89.7 MCH 31.0 MCHC 34.6 RDW 13.0 Plt Count 207 MPV 8.9 L Immature Gran % (Auto) 0.2 Neut % (Auto) 66.8 Lymph % (Auto) 21.9 [place] % (Auto) 8.0 Eos % (Auto) 2.4 Baso % (Auto) 0.7 Lymph # (Auto) 1.8 [place] # (Auto) 0.7 Eos # (Auto) 0.2 Baso # (Auto) 0.1 Abs Immat Gran (auto) 0.02 Absolute Neuts (auto) 5.6 Absolute Nucleated RBC 0.000 Nucleated RBC % (auto) 0.0 PT 13.2 13.6 H INR 1.1 1.1 APTT 29.8 aPTT Heparin Protocol 29.0 L Anion Gap 13 Estim Creat Clear Calc 69.3 Estimated GFR > 60 Random Glucose 89 Calcium 9.6 Total Bilirubin 0.7 AST 25 ALT 16 Alkaline Phosphatase 81 Troponin I High Sens 7.9 Total Protein 8.1 H Albumin 4.1 Imaging Radiologist's Impressions: Impressions Chest CTA 07/18/23 15:05 IMPRESSION: Extensive bilateral pulmonary emboli. No evidence of right heart strain. VTE: positive. This critical result was discussed with ADEN Caballero at 1645 on 07/18/2023 and it was ascertained that the content and urgency of the report was understood at the time of direct communication. Venous Duplex 07/18/23 17:20 IMPRESSION: Nonocclusive left gastrocnemius vein thrombus. Assessment and Plan (1) Pulmonary embolism, bilateral: Status: Acute (2) Left leg DVT: Status: Acute Plan 68-year-old male with history of hyperlipidemia admitted for further mangement of bilateral PE #Unprovoked acute bilateral PE/DVT LLE -no known history of blood clots, clotting disorders. No known cancer history. No recent travel or hospitalizations -CTA chest shows extensive bilateral pulmonary emboli. Venous duplex left lower extremity shows nonocclusive thrombus of the gastrocnemius vein -continue IV heparin per protocol -hematology consult -no evidence of right heart strain on CTA however will check echocardiogram -monitor on telemetry # HLD -continue statin DVT prophylaxis-on heparin with acute VTE Full code Patient requires inpatient stay at least 2 midnights for management of acute bilateral PE and DVT of the left lower extremity requiring parental anticoagulation, expert consultation Quality Stroke Does the patient have a stroke diagnosis?: No VTE Prior VTE?: No VTE Risk Level:: Medical - moderate - high VTE Device Contraindication: Treatment Not Indicated VTE Drug Contraindication: N/A - Med Ordered
[2023-07-18 23:46] VITALS: BP 141/88; PULSE 70; RESP 14; O2SAT 95
[2023-07-18] MEDS: Acetaminophen 325 MG TABLET 650 MG PO (23:56)
[2023-07-19 01:42] LABS: PTT Heparin Drip 77.6 SEC (53-77.9)
[2023-07-19 05:00] LABS: MANUAL DIFF FLAG NO
[2023-07-19 05:04] LABS: Basophils Absolute Auto 0.1 X10*3/uL (0.0-0.2); Basophils Percent Auto 0.8 % (0-2); Eosinophils Absolute Auto 0.6 X10*3/uL (0.0-0.4); Eosinophils Percent Auto 8.4 % (0-4); Hematocrit 40.1 % (42.0-52.0); Hemoglobin 13.7 g/dl (14.0-18.0); Imm Gran Abs Auto 0.02 X10*3/uL (0.00-0.03); Imm Gran Pct Auto 0.3 % (0.0-0.4); Lymphocytes Absolute Auto 2.7 X10*3/uL (1.2-4.9); Lymphocytes Percent Auto 35.6 % (20-40); Mean Corpuscular HGB Conc 34.2 g/dl (31.0-36.0); Mean Corpuscular Hemoglobin 30.7 pg (27.0-33.0); Mean Corpuscular Volume 89.9 fL (80.0-98.0); Mean Platelet Volume 9.2 fL (9.4-12.4); Monocytes Absolute Auto 0.7 X10*3/uL (0.1-1.2); Monocytes Percent Auto 8.9 % (2-11); Neutrophils Absolute Auto 3.5 x10*3/uL (2.0-8.3); Platelet Count 202 X10*3/uL (160-400); Red Blood Count 4.46 X10*6/uL (4.60-5.80); Red Cell Distribution Width 13.1 % (11.0-16.0); White Blood Count 7.6 X10*3/uL (4.8-10.8)
[2023-07-19 05:12] LABS: INTERNATIONAL NORM RATIO 1.1 (0.9-1.1); Prothrombin Time 13.6 SEC (11.1-13.3)
[2023-07-19 05:15] VITALS: PULSE 64; RESP 18
[2023-07-19 05:15] LABS: Anion Gap 13 (12-20); Blood Urea Nitrogen 15 mg/dL (9-16); Calcium 9.3 mg/dL (8.4-10.2); Carbon Dioxide 22 mmol/L (22-29); Chloride 109 mmol/L (96-108); Creatinine Clr Calc Pharmacy 81.6; Estimated Glomerular Filt Rate > 60; Glucose Random 80 mg/dL (60-115); Potassium 3.8 mmol/L (3.3-5.1); Sodium 140 mmol/L (135-145)
[2023-07-19 06:00] VITALS: BP 145/82; PULSE 62; RESP 18; TEMP 36.6; O2SAT 95
--- NOTE | 2023-07-19 07:00 | CA_ITS ---
Transthoracic Echocardiogram Patient (Last, First, Middle): Augusto Burton, Gender: Male Date of : 1955 Age: 68 Procedure Date: 07/19/2023 Procedure Type: Transthoracic Echocardiogram Location: ER Height: 177.8 cm Weight: 92.99 kg BSA: 2.11 m2 Heart Rate: 82 bpm BP: 145 / 82 mmHg Nursing Scheduler: Referring MD: Sarah SAMANIEGO Symptoms: bilateral PE Study Quality: Adequate ECG Rhythm: Sinus Conclusions: - Normal left ventricular size and systolic function. There is mildly increased left ventricular wall thickness. The visually estimated ejection fraction is between 60-65%. - Mildly increased right ventricular cavity size. There is normal right ventricular systolic function. - There is no evidence of pulmonary hypertension. - There is mild dilatation of the ascending aorta measuring 3.60 cm. Findings Left Ventricle Normal left ventricular size and systolic function. There is mildly increased left ventricular wall thickness. The visually estimated ejection fraction is between 60-65%. There is no evidence of regional wall motion abnormalities. Diastolic function is normal for age. Right Ventricle Mildly increased right ventricular cavity size. There is normal right ventricular systolic function. Atria The left atrium is mildly dilated. Aortic Valve Normal aortic valve structure and function. There is no aortic valve stenosis. There is no aortic valve regurgitation. Mitral Valve The mitral valve appears normal. There is no mitral valve regurgitation. There is no mitral valve stenosis. Pulmonic Valve The pulmonic valve is normal. There is trace pulmonic valve regurgitation. Tricuspid Valve Normal tricuspid valve structure. There is no tricuspid valve regurgitation. Normal right atrial pressure. There is no evidence of pulmonary hypertension. Great Vessels There is mild dilatation of the ascending aorta measuring 3.60 cm. The visualized portions of the pulmonary artery and branches are normal. Venous The inferior vena cava is normal in size and collapses greater than 50% with inspiration. Pericardium/Pleural There is no evidence of pericardial effusion. Prior Study Comparison No prior study available for comparison. Measurements 2D Linear Measurements IVSd: 1.16 0.6-0.9/0.6-1.0 cm LVIDd: 4.40 3.9-5.3/4.2-5.9 cm LVIDd Index: 2.09 2.4-3.2/2.2-3.1 cm/m2 LVIDs: 2.31 2.0-3.6 cm LVPWd: 1.02 0.7-1.1 cm LA Diam: 4.20 2.7-3.8/3.0-4.0 cm LAIDs Index: 1.99 1.5-2.3 cm/m2 LV Mass: 207.69 67-162/88-224 g LV Mass Index: 98.43 43-95/49-115 g/m2 LVOT Diam: 2.40 3.0+(-)1.3 cm Mitral Valve MV Pk E: 0.60 MV PK A: 0.80 MV Decel Time: 207.00 E/A: 0.80 E'Lateral: 9.79 E'Medial: 7.83 E/E' Med: 7.70 E/E' Lat: 6.20 PHT: 61.00 MVA PHT: 3.61 Decel [place]: 2.92 Aortic Valve AoV Pk Ge: 1.52 AoV Mn Ge: 0.99 AoV VTI: 0.30 AoV Pk Grad: 9.00 Aov Mn Grad: 5.00 ENRICO Cont.VTI: 3.62 LVOT LVOT Pk Ge: 1.34 LVOT Mn Ge: 0.76 LVOT VTI: 0.24 LVOT Pk Grad: 7.00 LVOT Mn Grad: 3.00 LVOT Diam: 2.40 LVOT Area: 4.52 Diastolic Function MV Pk E: 0.60 MV Pk A: 0.80 E/A: 0.80 E'Medial: 7.83 E/E' Med: 7.70 E' Laterial: 9.79 E/E' Lat: 6.20 Right Ventricle TAPSE (mm): 28.10 TVS' Ge: 20.80 Tricuspid Valve TR Pk Ge: 2.30 TR Pk Grad: 21.00 RA Press: 3.00 RVSP: 24.00 Great Vessels Aorta Sinus of Valsalva: 3.40 2.0-3.5 cm Ao Asc: 3.60 2.1-3.4 cm Pulmonary Valve PV Pk Ge: 1.09 Peak PV Grad: 5.00 Updated in Other Vendor System with Status of Final Alpesh Marhsall MD electronically signed on 07/19/2023 12:29:46 PM with status of Final
--- NOTE | 2023-07-19 07:15 | PC.NURSE ---
assumed care of patient at this time, patient is A&O, breathing even and unlabored, patient reports no pain, patient reports that his sister was hospitalized with PE last month, PTT drawn by [facility].
[2023-07-19] MEDS: Atorvastatin Calcium 10 MG TABLET PO (07:46)
--- NOTE | 2023-07-19 08:19 | PM.HEMONCCN ---
Subjective - Subjective Chief complaint: Shortness of breath Patient: new to practice Consult date: 07/19/23 Primary Care Provider: Lamonte Nuñez MD Medical Summary: Diagnosis: Spontaneous bilateral PE 07/2023 HPI - Consult Narrative Reason for consult: Pulmonary embolism Narrative: Augusto Burton is a 68 year old male presented to emergency department on 07/18/2023 with complaints of shortness of breath with exertion. He has an avid hiker and noticed that he was getting very short breath [place] which was unusual for him. For 2 days prior he has been feeling somewhat unwell but not enough to seek medical attention. When he developed this shortness of breath with exertion, he saw his PCP who did some blood work, D-dimer was over 3000 NG/mL. He was asked to go to the emergency department were CT angiogram revealed bilateral pulmonary emboli. Left lower extremity Doppler was positive for DVT. He has been started on IV heparin, he has had echocardiogram today. At this time he denies any shortness of breath, chest pain or dizziness. He had serious injury to his left leg many years ago and he has chronic swelling in the left leg. He has some varicose veins as well, he noticed that his left leg was more swollen than usual for a few days. Apart from that he denies any immobilization, surgery or recent trauma. He is up-to-date with screening colonoscopy and PSA testing. He was never diagnosed with any malignancy. There is no family history of thromboembolism or thrombophilia. Review of Systems - Constitutional Reports as per HPI, Denies fatigue, Denies lack of energy, Denies malaise, Denies night sweats, Denies poor appetite, Denies weight loss - Cardiovascular Reports no additional cardiovascular complaints - Respiratory Reports no additional respiratory complaints - Gastrointestinal Reports no additional gastrointestinal complaints [facility] Medical History: Medical History (Last Reviewed 07/18/23 @ 19:22 by ADEN Burciaga) Hyperlipidemia Social History: Social History (Last Reviewed 07/18/23 @ 19:22 by ADEN Burciaga) Alcohol History Details: 1. How often do you have a drink containing alcohol?: a. Never AUDIT-C Alcohol total score: 0 Tobacco History: Patient Tobacco Use Status: Never used Tobacco Smoked in Last 30 Days: No Substance Use History: Use of substances other than those prescribed or required for medical reasons: No Advance Directives: Advance Directives: No Advance Directives Information Provided: No Nutrition Assessment: Nutrition Risks: No Nutritional Risk Occupation Assessmet: service: No Home Medications and Allergies Current Medications: Current Medications Acetaminophen (Acetaminophen 325 Mg Tablet) 650 mg PO Q6H PRN PRN Reason: Pain, Mild (Pain Scale 1-3) Last Admin: 07/18/23 23:56 Dose: 650 mg Atorvastatin Calcium (Atorvastatin Calcium 10 Mg Tablet) 10 mg PO DAILY [facility] Last Admin: 07/19/23 07:46 Dose: 10 mg Heparin Sodium (Porcine) (Heparin Sodium,Porcine 5,000 Unit/Ml Vial) 3,700 unit 40 unit/kg (3700 unit) IVPUSH PROTOCOL BOLUS PRN; Protocol PRN Reason: 40 unit/kg - Heparin Protocol Heparin Sodium (Porcine) (Heparin Sodium,Porcine 5,000 Unit/Ml Vial) 7,400 unit 80 unit/kg (7400 unit) IVPUSH PROTOCOL BOLUS PRN; Protocol PRN Reason: 80 unit/kg - Heparin Protocol Heparin Sodium/Sodium Chloride (Heparin Sodium,Porcine/1/2ns) 25,000 unit in 250 mls @ 0 mls/hr IVCONT .Q0M [facility]; Protocol Last Titration: 07/19/23 07:48 Dose: 12 units/kg/hr, 11.16 mls/hr Ondansetron HCl (Ondansetron Hcl 4 Mg/2 Ml Vial) 4 mg IVPUSH Q8H PRN PRN Reason: Nausea and Vomiting Senna (Sennosides 8.6 Mg Tablet) 17.2 mg PO BEDTIME PRN PRN Reason: Constipation Sodium Chloride (0.9 % Sodium Chloride Flush 3 Ml Syringe) 3 ml IVFLUSH QSHIFT [facility] Last Admin: 07/19/23 07:37 Dose: Not Given Home Medications ?Medication ?Instructions ?Recorded ?Confirmed ?Type simvastatin 20 mg tablet 20 mg PO DAILY 07/18/23 07/18/23 History Allergies Allergy/AdvReac Type Severity Reaction Status Date / Time amoxicillin [AMOXICILLIN] Allergy Mild HIVES Unverified 07/18/23 13:38 Physical Exam Vital signs: Vital Signs Temp 97.9 F 07/19/23 06:00 Pulse 62 07/19/23 06:00 Resp 18 07/19/23 06:00 BP 145/82 H 07/19/23 06:00 Pulse Ox 95 07/19/23 06:00 O2 Del Method Room Air 07/19/23 06:00 Intake & Output 07/18/23 07/19/23 07/19/23 18:59 06:59 18:59 Intake Total 87.451 / 87.451 85.498 / 85.498 Output Total 0 / 0 Balance 87.451 / 87.451 85.498 / 85.498 Urine Output (Average ml/kg/hr) 0.00 0.00 Intake: Intake, IV Amount 87.451 / 87.451 85.498 / 85.498 Heparin Sodium,Porcine/1/2NS 25 87.451 / 87.451 85.498 / 85.498 ,000 unit In 250 ml @ Per Protocol IVCONT .Q0M [facility] Rx#: [id number] Output: Output, Urine Amount 0 / 0 Other: Urine Urinal Weight 92.986 kg Weight 92.986 kg - Constitutional Present: no acute distress, average body habitus - Routine HEENT Exam Head: Present: normal inspection Eye: Present: EOMI, PERRL - Routine Neck Exam Present: supple. Absent: lymphadenopathy - Routine Respiratory Exam Absent: accessory muscle use, rhonchi, stridor - Routine Cardiovascular Exam Cardiovascular: Present: RRR, S1, S2 - Routine Extremities Exam Present: pedal edema. Absent: tenderness Hem/Onc Consult Result - Labs CBC & Chem 7: 07/19/23 04:27 07/19/23 04:27 Labs: Short CBC 07/18/23 07/19/23 Range/Units 13:55 04:27 WBC 8.3 7.6 (4.8-10.8) X10*3/uL Hgb 14.5 13.7 L (14.0-18.0) g/dl Hct 41.9 L 40.1 L (42.0-52.0) % Plt Count 207 202 (160-400) X10*3/uL BMP 07/18/23 07/19/23 13:55 04:27 Sodium 139 140 Potassium 3.9 3.8 Chloride 107 109 H Carbon Dioxide 23 22 BUN 16 15 Creatinine 1.20 1.02 Calcium 9.6 9.3 Liver Function 07/18/23 Range/Units 13:55 Total Bilirubin 0.7 (0.0-1.0) mg/dL AST 25 (5-37) U/L ALT 16 (0-40) U/L Alkaline Phosphatase 81 (39-117) U/L Albumin 4.1 (3.5-5.0) g/dL Assessment and Plan Patient Active problem list reviewed?: Yes (1) Pulmonary embolism, bilateral Status: Acute Assessment and plan: 1. This is a 68-year-old male with no significant past medical history admitted for extensive bilateral pulmonary emboli diagnosed 07/18/2023. He presented with exertional shortness of breath while on a hike, workup with CT angiogram revealed multiple occlusive and nonocclusive clots in both left and right pulmonary arteries without saddle embolism. No other suspicious findings in the chest. Left lower extremity Doppler revealed nonocclusive left gastrocnemius vein thrombus. He has chronic swelling and varicose veins of the left leg from prior trauma which is probably a risk factor for thromboembolism. There is no family history or symptoms to suggest underlying malignancy or current smoking. Thrombophilia workup can be submitted if necessary as outpatient. He would be a candidate for long-term anticoagulation. He is hemodynamically stable, echocardiogram report is pending. He can be switched to oral anticoagulant/ Eliquis at any time. I thank you for this referral. - Time Spent With Patient Time Spent with Patient (in minutes): 20
--- NOTE | 2023-07-19 09:53 | MHC.CM.PN ---
CM attempted to meet with Patient in the ED but he was receiving bedside testing. CM spoke with /HCP/Bridgette and addressed IMM with her (original will be given to Patient and a copy placed on the chart). Patient lives with his /HCP and home self care is the goal. CM has initiated and will follow for dc planning. PCP is Dr. Lamonte Nuñez.
--- NOTE | 2023-07-19 14:12 | MHC.CM.PN ---
Patient has been medically cleared for dc to home today, self care.
--- NOTE | 2023-07-19 14:21 | P.DS_ITS ---
DS: Providers Provider Date of Service: 07/19/23 Date of admission: 07/18/23 19:14 Date of discharge: 07/19/23 Primary care physician: Lamonte Nuñez MD Consults: 07/18/23 19:14 Consult to Hematology / Oncology Routine Consulting Provider: Mary Kate Sharif Reason for consultation: bilateral pe unprovoked Attending physician on discharge: Tammy Pak Discharging clinician: Tammy Pak DS: Diagnosis Discharge Diagnosis (1) Pulmonary embolism, bilateral: Status: Acute (2) Left leg DVT: Status: Acute DS: Summary Hospital Course Hospital Course: 68-year-old male with history of hyperlipidemia presents to ED earlier today for evaluation dyspnea on exertion which he noticed on Tuesday. He states he is very active, hiking and walking often and developed dyspnea on exertion on Tuesday which worsened yesterday while on a hike. He states there was also mild headache. Denies any fevers, chills, recent illness, lightheadedness, palpitations, shortness of breath at rest, wheezing, chest pain. He does have a remote history of fracture in the left lower leg requiring ORIF and since then has had swelling in the left lower extremity which he does feel worsened around several weeks ago. Denies calf tenderness. He denies any recent travel, recent surgeries or prolonged hospital stay. No personal history or known family history of blood clots or clotting disorders. No history of cancer though states his mother did have lung cancer but was a heavy smoker. He reports he has a former smoker with 20 pack year history who quit 21 years ago. Denies any illicit drug use or alcohol use. On arrival, vital signs stable. Hematology studies unremarkable. Renal functi on electrolyte levels normal. Troponin 7.9. PT 13.6, INR 1.1, PTT 29.8. D- dimer >3300. Venous duplex left lower extremity shows nonocclusive left gastrocnemius vein thrombus. CTA chest shows extensive bilateral pulmonary emboli but no evidence of right heart strain. In the ED, has been started on heparin drip per protocol. He will be admitted for further management of bilateral PE. Hospital course: Patient came to the hospital because of because of shortness of breath-further workup(dvt study lower ext and Cta) reveals right lower extremity DVT as well as bilateral pulmonary embolisms:Patient was started on IV heparin-currently patient is asymptomatic, troponins and bnp seems fine , echo:seems fine ef: 60- 65%,There is no evidence of regional wall motion abnormalities. Diastolic function is normal for age. seen by Hematology recommended-Thrombophilia workup can be submitted if necessary as outpatient. He would be a candidate for long-term anticoagulation. switched to Eliquis.Patient will take Eliquis 10 mg p.o. b.i.d. for 7 days(07/25/23) and then switched to Eliquis 5 mg p.o. b.i.d. (onward on 07/26/23). plan: Thrombophilia workup can be submitted if necessary as outpatient. He would be a candidate for long-term anticoagulation. switched to Eliquis.Patient will take Eliquis 10 mg p.o. b.i.d. for 7 days(07/25/23) and then switched to Eliquis 5 mg p.o. b.i.d. (onward on 07/26/23). follow up with pcp and oncology outpatient. Above management discussed with the patient detail length he understand and in agreement with the above plan, time spent 40 minute. Time Attestation Total time managing care of this patient today: 40 mintues. Discharge Coordination Time (in mins): 40 min Quality: Safe Use of Opioids Does Pt have an Active Cancer Diagnosis on the Problem List?: No Quality: Stroke Does the patient have a stroke diagnosis?: No Physical Exam Vital Signs: Vital Signs: Last Vital Signs Temp 97.9 F 07/19/23 06:00 Pulse 62 07/19/23 06:00 Resp 18 07/19/23 06:00 BP 145/82 H 07/19/23 06:00 Pulse Ox 95 07/19/23 06:00 O2 Del Method Room Air 07/19/23 06:00 BMI result Body Mass Index 29.4 Appearance: Alert.? Oriented X3.? not in distress.? cvs: rrr, [id number] , no murmur res: clear to auscultation ,no rhonchii or wheezing abd: no rebound or guarding ,nt, bs present. ext pulses present , no cyanosis . neuro: axo3 , nonfocal. DS: Data Data Completed and Pending Labs on day of discharge: Laboratory Results - last 24 hr 04/12/0207/18/23 07/19/23 13:55 17:30 01:14 WBC RBC Hgb Hct MCV MCH MCHC RDW Plt Count MPV Immature Gran % (Auto) Neut % (Auto) Lymph % (Auto) [place] % (Auto) Eos % (Auto) Baso % (Auto) Lymph # (Auto) [place] # (Auto) Eos # (Auto) Baso # (Auto) Abs Immat Gran (auto) Absolute Neuts (auto) Absolute Nucleated RBC Nucleated RBC % (auto) PT 13.6 H INR 1.1 aPTT Heparin Protocol 29.0 L 77.6 D Sodium Potassium Chloride Carbon Dioxide Anion Gap BUN Creatinine Estim Creat Clear Calc Estimated GFR Random Glucose Calcium Troponin I High Sens 7.9 07/19/23 07/19/23 04:27 07:19 WBC 7.6 RBC 4.46 L Hgb 13.7 L Hct 40.1 L MCV 89.9 MCH 30.7 MCHC 34.2 RDW 13.1 Plt Count 202 MPV 9.2 L Immature Gran % (Auto) 0.3 Neut % (Auto) 46.0 Lymph % (Auto) 35.6 [place] % (Auto) 8.9 Eos % (Auto) 8.4 H Baso % (Auto) 0.8 Lymph # (Auto) 2.7 [place] # (Auto) 0.7 Eos # (Auto) 0.6 H Baso # (Auto) 0.1 Abs Immat Gran (auto) 0.02 Absolute Neuts (auto) 3.5 Absolute Nucleated RBC 0.000 Nucleated RBC % (auto) 0.0 PT 13.6 H INR 1.1 aPTT Heparin Protocol 90.0 H Sodium 140 Potassium 3.8 Chloride 109 H Carbon Dioxide 22 Anion Gap 13 BUN 15 Creatinine 1.02 Estim Creat Clear Calc 81.6 Estimated GFR > 60 Random Glucose 80 Calcium 9.3 Troponin I High Sens Imaging Chest x-ray: Radiologist's impression: ITS Impressions Chest CTA 07/18/23 15:05 IMPRESSION: Extensive bilateral pulmonary emboli. No evidence of right heart strain. VTE: positive. This critical result was discussed with ADEN Caballero at 1645 on 07/18/2023 and it was ascertained that the content and urgency of the report was understood at the time of direct communication. Venous Duplex 07/18/23 17:20 IMPRESSION: Nonocclusive left gastrocnemius vein thrombus. Discharge Plan Discharge Anticipated Discharge Date/Time: 07/19/23 14:06 Patient Disposition: Home, Self-Care Discharge Diagnosis: b/l pulm embolism ,Nonocclusive left gastrocnemius vein thrombus. Referrals: Lamonte Nuñez MD [Primary Care Provider] - 1 Week Mary Kate Sharif MD [Physician] - 1 Week Discharge Medications: New Eliquis 5 mg Tablet 10 mg PO BID Qty: 60 0RF Rx Instructions: take 2 tabs(10mg) eliquis twice daily for 1 week ( until 07/25/23) then on 07/26/23 switch to eliquis 5 mg 1 tab po bid Continued simvastatin 20 mg tablet 20 mg PO DAILY Discharge Orders: Discharge Order (Routine); Ordered 07/19/23 Ordered By: Tammy Pak Diet: Advance to usual diet Activity on Discharge: As tolerated Stand Alone Forms: Patient Portal Discharge page Print Language: Slovak Care Plan Goals: Patient came to the hospital because of because of shortness of breath-further workup(dvt study lower ext and Cta) reveals right lower extremity DVT as well as bilateral pulmonary embolisms:Patient was started on IV heparin-currently patient is asymptomatic, troponins and bnp seems fine , echo:seems fine ef: 60- 65%,There is no evidence of regional wall motion abnormalities. Diastolic function is normal for age. seen by Hematology recommended-Thrombophilia workup can be submitted if necessary as outpatient. He would be a candidate for long-term anticoagulation. switched to Eliquis.Patient will take Eliquis 10 mg p.o. b.i.d. for 7 days(07/25/23) and then switched to Eliquis 5 mg p.o. b.i.d. (onward on 07/26/23). Health Concerns: as above. Plan of Treatment: as above. Assessment: as above.
[2023-07-19 14:43] LABS: PTT Heparin Drip 55.9 SEC (53-77.9)
[2023-07-19] MEDS: Apixaban 5 MG TABLET 10 MG PO (14:46)
[2023-07-19 15:44] VITALS: BP 135/82; PULSE 74; RESP 18; TEMP 36.8; O2SAT 95
== END 2023-07-19 18:28 | disposition home or self-care (01) | DRG 197 ==
LOC: HO.ED 18:07 → HO.EDOVER 19:23
PROVIDERS: Physician Assistant; Admitting Provider Physician Assistant; Emergency Provider Emergency Medicine; PCP Internal Medicine; Visit Provider Internal Medicine
DX: I82.462 Acute embolism and thrombosis of left calf muscular vein (principal); I26.99 Other pulmonary embolism without acute cor pulmonale; E78.5 Hyperlipidemia, unspecified; Z79.899 Other long term (current) drug therapy
CPT/HCPCS: 36415; 71275; 80048; 80053; 84484; 85025; 85027; 85610; 85730; 93005; 93306; 93970; 99285; J1644; Q9957; Q9967

== ENCOUNTER → 2023-07-18 13:36 | Outpatient (BNV) | payer BC, SELFPAY | PROVIDERS: Admitting Provider Physician Assistant; Emergency Provider Emergency Medicine; PCP Internal Medicine; Visit Provider Internal Medicine Cardiovascular Disease | DX: R06.02 Shortness of breath (principal) | CPT/HCPCS: 93010 ==

== ENCOUNTER 2023-07-18 19:14 | Outpatient (BNV) | payer BC, SELFPAY | END 2023-07-19 07:00 | PROVIDERS: Admitting Provider Physician Assistant; Emergency Provider Emergency Medicine; PCP Internal Medicine; Visit Provider Internal Medicine Cardiovascular Disease | DX: I71.21 Aneurysm of the ascending aorta, without rupture (principal) | CPT/HCPCS: 93306 ==

== ENCOUNTER → 2023-07-18 19:14 | Outpatient (BNV) | payer BC, SELFPAY | PROVIDERS: Admitting Provider Physician Assistant; Emergency Provider Emergency Medicine; PCP Internal Medicine; Visit Provider Physician Assistant | DX: I26.99 Other pulmonary embolism without acute cor pulmonale (principal); I82.402 Acute embolism and thrombosis of unspecified deep veins of left lower extremity | CPT/HCPCS: 99223; 99239 ==

== ENCOUNTER → 2023-07-18 19:14 | Outpatient (BNV) | payer BC, SELFPAY | PROVIDERS: Admitting Provider Physician Assistant; Emergency Provider Emergency Medicine; PCP Internal Medicine; Visit Provider Internal Medicine | DX: I26.99 Other pulmonary embolism without acute cor pulmonale (principal) | CPT/HCPCS: 99222 ==

== ENCOUNTER → 2024-01-26 08:25 | Outpatient (BNVA) | payer SELFPAY | PROVIDERS: PCP Internal Medicine; Visit Provider Physician Assistant | DX: Z02.79 Encounter for issue of other medical certificate (principal) ==

== ENCOUNTER → 2024-02-29 09:00 | Outpatient (BNV) | payer BC, SELFPAY | PROVIDERS: PCP Internal Medicine; Visit Provider Internal Medicine | DX: I26.99 Other pulmonary embolism without acute cor pulmonale (principal) | CPT/HCPCS: 99214 ==

== ENCOUNTER 2024-08-22 15:38 | Outpatient (AMB) | payer BC, SELFPAY ==
--- NOTE | 2024-08-22 15:47 | MHC.PC.OV ---
Vital Signs 08/22/24 15:59 08/22/24 16:19 Height 5 ft 10 in Weight 93.44 kg BMI 29.6 BP 168/84 H 160/88 H Respiration 16 Pulse 70 Temp 98.2 F Pulse Oximetry (%) 98 Oxygen Delivery Method Room Air Intake Visit Reasons: Routine Aboriginal Liaison Officer Required: No Accompanied by: Self / Same As Patient Allergies amoxicillin [AMOXICILLIN] Allergy (Mild, Unverified 08/22/24 16:00) HIVES HPI HPI Comments History of Present Illness Details 69-year-old male with history of hyperlipidemia, left lower extremity DVT and bilateral PE presents to the office today for routine follow-up and to establish care. He was diagnosed with DVT and PE on 07/18/2023 and has been compliant with Eliquis. He has been following with hematology with ongoing discussions about thrombophilia workup to determine duration of therapy. For now, he remains on 5 mg of Eliquis twice daily. He denies any ongoing swelling of the left lower extremity. No shortness a breath, lightheadedness, palpitations, chest pain. He is concerned about intermittent stabbing pains that occur randomly in joints. Describes as a stabbing sensation that occurs randomly in different joints without any known triggers. Lasts secnds before resolving. No hx osteoarthritis. No hx autoimmune conditions. He is also reporting and intermittent discomfort in the right lower quadrant ongoing for several months. No palpable bulges. Denies any known injury. No history of abdominal surgery. Describes a dull ache worse with bending over. He is able to exert himself without difficulty. He is unable to identify other inciting factors and is unable to identify any alleviating factors. There is no radiation of the pain. No testicular swelling or bulges. Bowel function is normal. No fevers chills. No urinary issues. [facility] Medical History (Updated 08/22/24 @ 17:07 by ADEN Rendon) Hyperlipidemia Surgical History (Updated 08/22/24 @ 16:48 by Alisa Camacho) History of colonoscopy (~09/28/19) Family History (Updated 02/29/24 @ 08:54 by Teto Lewis) Mother Lung cancer Social History (Updated 02/29/24 @ 08:55 by Teto Lewis) Household Members: Spouse Patient Tobacco Use Status: Never used Tobacco service: No Current occupational status: retired Questionnaire Thrive Questionnaire Date Thrive assessed: 07/19/23 Review of Systems Const All systems reviewed & are unremarkable except as noted in HPI and below Physical exam (Primary Care) Vital Signs: Last Vital Signs Temp 98.2 F 08/22/24 15:59 Pulse 70 08/22/24 15:59 Resp 16 08/22/24 15:59 BP 160/88 H 08/22/24 16:19 Pulse Ox 98 08/22/24 15:59 Oxygen Delivery Method Room Air 08/22/24 15:59 BMI result Body Mass Index 29.6 Tobacco/Smoking Status: Tobacco use Status Patient Tobacco Use Status Never used Tobacco 08/22/24 15:47 Thrive Assessment: Date of Thrive Assessment Date Thrive assessed 07/19/23 08/22/24 15:47 Const Other: Constitutional - Awake and Alert, No apparent distress Eyes - PERRLA, EOMI Cardiovascular - S1S2, RRR, No edema Respiratory - Normal lung expansion, Normal respiratory effort, No respiratory distress, CTA bilaterally Gastrointestinal - NT / ND; +BS; No rebound or guarding. Unable to reproduce tenderness in RLQ Extremities - no calf tenderness bilaterally, no swelling Musculoskeletal - Normal inspection, normal ROM, R hip with full flexion, extension, internal and external rotation Skin - Warm/Dry Neurological - Alert & oriented x3, BLE Psychological - Appropriate affect Coding Level of Care Code New Pt Level 4 (83426) Complex EM visit Add On G2211 Diagnoses Left leg DVT I82.402 Pulmonary embolism, bilateral I26.99 Hyperlipidemia E78.5 Polyarthralgia M25.50 Abdominal pain, chronic, right lower quadrant R10.31; G89.29 Assessment & Plan Assessment & Plan (1) Left leg DVT: Code(s): I82.402 - Acute embolism and thrombosis of unspecified deep veins of left lower extremity Category: Medical Plan: Venous duplex 08/02 reviewed. Hematology note reviewed. Follow-up with hematology as scheduled for possible thrombolytic workup and to determine duration of anticoagulation therapy for now, advised continuing with Eliquis 5 mg twice daily. Advised that this is unlikely to be a cause of his symptoms as he is concerned about that. (2) Pulmonary embolism, bilateral: Code(s): I26.99 - Other pulmonary embolism without acute cor pulmonale Category: Medical Plan: CTA chest 08/02 reviewed. Hematology note reviewed. Follow-up with hematology as scheduled for possible thrombolytic workup and to determine duration of anticoagulation therapy for now, advised continuing with Eliquis 5 mg twice daily. Advised that this is unlikely to be a cause of his symptoms as he is concerned about that. (3) Hyperlipidemia: Code(s): E78.5 - Hyperlipidemia, unspecified Category: Medical Plan: Lipid panel ordered. Continue simvastatin 20 mg daily. Follow low-sodium diet. (4) Polyarthralgia: Code(s): M25.50 - Pain in unspecified joint Category: Medical Plan: Etiology unclear. Intermittent pains of pain and random joints. No one point of arthralgia to consider imaging. We will check inflammatory and autoimmune markers. (5) Abdominal pain, chronic, right lower quadrant: Code(s): R10.31 - Right lower quadrant pain; G89.29 - Other chronic pain Category: Medical Plan: Etiology again unclear. Given persistence, we will check CT abdomen/pelvis. Overall, abdominal and musculoskeletal exam within normal limits. Normal colonoscopy in 2019. Plan Follow-up in 6 months. Labs ordered to be completed today. CT abdomen/pelvis to be scheduled. Plan to be adjusted as indicated by results. Orders: Orders Basic Metabolic Panel 08/23/24 E78.5 - Hyperlipidemia, unspecified, I26.99 - Other pulmonary embolism without acute cor pulmonale, I82.402 - Acute embolism and thrombosis of unspecified deep veins of left lower extremity, Z12.5 - Encounter for screening for malignant neoplasm of prostate, Z13.1 - Encounter for screening for diabetes mellitus Complete Blood Count Auto Diff 08/23/24 E78.5 - Hyperlipidemia, unspecified, I26.99 - Other pulmonary embolism without acute cor pulmonale, I82.402 - Acute embolism and thrombosis of unspecified deep veins of left lower extremity, Z12.5 - Encounter for screening for malignant neoplasm of prostate, Z13.1 - Encounter for screening for diabetes mellitus Hemoglobin A1c 08/23/24 E78.5 - Hyperlipidemia, unspecified, I26.99 - Other pulmonary embolism without acute cor pulmonale, I82.402 - Acute embolism and thrombosis of unspecified deep veins of left lower extremity, Z12.5 - Encounter for screening for malignant neoplasm of prostate, Z13.1 - Encounter for screening for diabetes mellitus Lipid Panel 08/23/24 E78.5 - Hyperlipidemia, unspecified, I26.99 - Other pulmonary embolism without acute cor pulmonale, I82.402 - Acute embolism and thrombosis of unspecified deep veins of left lower extremity, Z12.5 - Encounter for screening for malignant neoplasm of prostate, Z13.1 - Encounter for screening for diabetes mellitus Liver Panel 08/23/24 E78.5 - Hyperlipidemia, unspecified, I26.99 - Other pulmonary embolism without acute cor pulmonale, I82.402 - Acute embolism and thrombosis of unspecified deep veins of left lower extremity, Z12.5 - Encounter for screening for malignant neoplasm of prostate, Z13.1 - Encounter for screening for diabetes mellitus TSH reflex Free T4 08/23/24 E78.5 - Hyperlipidemia, unspecified, I26.99 - Other pulmonary embolism without acute cor pulmonale, I82.402 - Acute embolism and thrombosis of unspecified deep veins of left lower extremity, Z12.5 - Encounter for screening for malignant neoplasm of prostate, Z13.1 - Encounter for screening for diabetes mellitus CT abdomen pelvis wo IV con 08/22/24 G89.29 - Other chronic pain, M25.50 - Pain in unspecified joint, R10.31 - Right lower quadrant pain Prostate Specific Antigen 08/23/24 E78.5 - Hyperlipidemia, unspecified, I26.99 - Other pulmonary embolism without acute cor pulmonale, I82.402 - Acute embolism and thrombosis of unspecified deep veins of left lower extremity, Z12.5 - Encounter for screening for malignant neoplasm of prostate, Z13.1 - Encounter for screening for diabetes mellitus IRON PROFILE 08/23/24 E78.5 - Hyperlipidemia, unspecified, I26.99 - Other pulmonary embolism without acute cor pulmonale, I82.402 - Acute embolism and thrombosis of unspecified deep veins of left lower extremity, Z12.5 - Encounter for screening for malignant neoplasm of prostate, Z13.1 - Encounter for screening for diabetes mellitus BELTRAN Reflex Titer and Pattern 08/23/24 M25.50 - Pain in unspecified joint Rheumatoid Factor 08/23/24 M25.50 - Pain in unspecified joint C Reactive Protein 08/23/24 M25.50 - Pain in unspecified joint Erythrocyte Sedimentation Rate 08/23/24 M25.50 - Pain in unspecified joint Medications: Discontinued apixaban (Eliquis) take 2 tabs(10mg) eliquis twice daily for 1 week ( until 07/25/23) then on 07/26/23 switch to eliquis 5 mg 1 tab po bid Discontinued Reason: Doctor's Order 10 mg (2 x 5 mg) PO BID 60 tabs 0RF
[2024-08-22 15:59] VITALS: BP 168/84; PULSE 70; RESP 16; TEMP 36.8; O2SAT 98; BMI 29.6
[2024-08-22 16:19] VITALS: BP 160/88
== END 2024-08-22 16:30 | disposition home or self-care (01) ==
LOC: HO.HMCHD 15:39
PROVIDERS: PCP Internal Medicine; Visit Provider Physician Assistant
DX: I82.402 Acute embolism and thrombosis of unspecified deep veins of left lower extremity (principal); I26.99 Other pulmonary embolism without acute cor pulmonale; E78.5 Hyperlipidemia, unspecified; M25.50 Pain in unspecified joint; R10.31 Right lower quadrant pain; G89.29 Other chronic pain

== ENCOUNTER → 2024-08-22 15:38 | Outpatient (BNVA) | payer BC, SELFPAY | PROVIDERS: PCP Internal Medicine; Visit Provider Physician Assistant ==

== ENCOUNTER 2024-08-23 06:06 | Outpatient (REF) | payer BC, SELFPAY ==
[2024-08-23 06:19] LABS: MANUAL DIFF FLAG NO
[2024-08-23 07:19] LABS: Basophils Absolute Auto 0.1 X10*3/uL (0.0-0.2); Basophils Percent Auto 0.6 % (0-2); Eosinophils Absolute Auto 0.6 X10*3/uL (0.0-0.4); Hematocrit 44.4 % (42.0-52.0); Hemoglobin 14.9 g/dl (14.0-18.0); Imm Gran Abs Auto 0.02 X10*3/uL (0.00-0.03); Imm Gran Pct Auto 0.3 % (0.0-0.4); Lymphocytes Absolute Auto 2.5 X10*3/uL (1.2-4.9); Lymphocytes Percent Auto 32.1 % (20-40); Mean Corpuscular HGB Conc 33.6 g/dl (31.0-36.0); Mean Corpuscular Hemoglobin 30.5 pg (27.0-33.0); Mean Platelet Volume 9.2 fL (9.4-12.4); Monocytes Absolute Auto 0.5 X10*3/uL (0.1-1.2); Monocytes Percent Auto 6.8 % (2-11); Neutrophils Absolute Auto 4.1 x10*3/uL (2.0-8.3); Neutrophils Percent Auto 52.2 % (45-73); Platelet Count 246 X10*3/uL (160-400); Red Blood Count 4.88 X10*6/uL (4.60-5.80); Red Cell Distribution Width 13.1 % (11.0-16.0); White Blood Count 7.9 X10*3/uL (4.8-10.8)
[2024-08-23 07:34] LABS: Estimated Average Glucose 103 mg/dL; Hemoglobin A1C 130.0124 umol/L; Hemoglobin A1c % 5.2 % (<6.0); Total Hemoglobin (HGBA1C) 3868.0669 umol/L
[2024-08-23 07:43] LABS: Rheumatoid Factor < 13.0 IU/mL (<15.0)
[2024-08-23 07:50] LABS: Alanine Aminotransferase 21 U/L (0-40); Albumin Level 4.2 g/dL (3.5-5.0); Alkaline Phosphatase 61 U/L (39-117); Anion Gap 12 (12-20); Aspartate Amino Transferase 28 U/L (5-37); Bilirubin Direct 0.3 mg/dL (0.0-0.5); Bilirubin Total 0.9 mg/dL (0.0-1.0); Blood Urea Nitrogen 18 mg/dL (9-16); C Reactive Protein < 0.10 mg/dL (< or = 0.50); Calcium 9.8 mg/dL (8.4-10.2); Carbon Dioxide 24 mmol/L (22-29); Chloride 108 mmol/L (96-108); Cholesterol 166 mg/dL (<200); Estimated Glomerular Filt Rate > 60; Glucose Random 93 mg/dL (60-115); HDL Cholesterol 50 mg/dL (>40); Iron 135 mcg/dL (45-160); LDL Cholesterol Calculated 100 mg/dL (<100); Percent Iron Saturation 50 % (15-50); Potassium 3.9 mmol/L (3.3-5.1); Sodium 140 mmol/L (135-145); Total Iron Binding Capacity 271 mcg/dL (228-428); Total Protein 7.7 g/dL (6.5-8.0); Triglycerides 82 mg/dL (<150); Unsaturated Iron Binding 136 ug/dL
[2024-08-23 07:55] LABS: Erythrocyte Sedimentation Rate 7 MM/HR (0-15)
[2024-08-23 07:59] LABS: Prostate Specific Antigen 0.68 ng/mL (<0.05-4.0)
[2024-08-23 08:16] LABS: TSH reflex Free T4 3.16 uIU/mL (0.32-4.0)
[2024-08-29 09:59] LABS: Anti Nuclear Antibody Pattern Nuclear, Speckled; Anti Nuclear Antibody Screen POSITIVE (NEGATIVE)
== END 2024-08-23 06:07 | disposition home or self-care (01) ==
LOC: HO.LAB 06:06
PROVIDERS: PCP Internal Medicine; Visit Provider Physician Assistant
DX: E78.5 Hyperlipidemia, unspecified (principal); I82.402 Acute embolism and thrombosis of unspecified deep veins of left lower extremity; I26.99 Other pulmonary embolism without acute cor pulmonale; Z12.5 Encounter for screening for malignant neoplasm of prostate; Z13.1 Encounter for screening for diabetes mellitus; M25.50 Pain in unspecified joint
CPT/HCPCS: 36415; 80048; 80061; 80076; 83036; 83540; 84153; 84443; 85025; 85652; 86038; 86039; 86140; 86431

== ENCOUNTER 2024-09-19 07:46 | Outpatient (REF) | payer BC, SELFPAY ==
[2024-09-19 09:51] LABS: Anion Gap 9 (12-20); Blood Urea Nitrogen 22 mg/dL (9-16); Calcium 9.3 mg/dL (8.4-10.2); Carbon Dioxide 27 mmol/L (22-29); Chloride 107 mmol/L (96-108); Estimated Glomerular Filt Rate > 60; Glucose Random 95 mg/dL (60-115); Potassium 4.1 mmol/L (3.3-5.1); Sodium 139 mmol/L (135-145)
== END 2024-09-19 07:47 | disposition home or self-care (01) ==
LOC: HO.LAB 07:46
PROVIDERS: PCP Internal Medicine; Visit Provider Physician Assistant
DX: Z13.9 Encounter for screening, unspecified (principal)
CPT/HCPCS: 36415; 80048

== ENCOUNTER 2024-09-19 07:46 | Outpatient (AMB) | payer BC, SELFPAY ==
--- NOTE | 2024-09-19 07:56 | A.OFFPC_ITS ---
Vital Signs 09/19/24 07:59 09/19/24 08:16 Height 5 ft 10 in Weight 91.626 kg BMI 29.0 BP 158/76 H 138/84 Respiration 14 Pulse 63 Pulse Source Pulse Oximeter Temp 98.1 F Temp Source Temporal Artery Scan Pulse Oximetry (%) 99 Oxygen Delivery Method Room Air Intake Visit Reasons: 1 Month F/U General Activities Therapist Required: No Accompanied by: Self / Same As Patient Allergies amoxicillin [AMOXICILLIN] Allergy (Mild, Unverified 09/19/24 07:59) HIVES Medication List - Last Reconciled 09/19/24 by ADEN Rendon apixaban (Eliquis) 2.5 mg (1/2 x 5 mg) PO BID simvastatin 20 mg PO DAILY HPI HPI Comments History of Present Illness Details 69-year-old male with history of hyperte nsion, hyperlipidemia, bilateral pulmonary embolism presents to the office for follow-up today. In previous visit, patient was notably hypertensive. On review of chart, does have history of elevated blood pressures. He reports a history of white coat hypertension. Does have blood pressure cuff at home but has not been taking this. He does state that last night he was having difficulty sleeping secondary to thinking about today's appointment. He has been working on lifestyle modification including low-sodium diet and has been increasing his exercise activity. He has been doing 40 minutes of cardio activity daily and occasionally walking in the [place] for 3 miles. He also does weights. He has been limiting caffeine intake. Very remote history of cigarette smoking and does not consume alcohol. Since our last visit, he has also seen his diagnostic cardiac sonographer who is recommending lifelong anticoagulation as his insurance company would not approve genetic testing. The PE was unprovoked. He may appeal this to his insurance company. Eliquis dose was reduced to 2.5 mg b.i.d.. He states he feels since the Eliquis was cuts back, the intermittent arthralgias have improved. He did have low positive BELTRAN titers and was referred to rheumatology. ROS: General: No fevers, malaise, unintentional weight loss HEENT: No blurred vision, diplopia. No sore throat, nasal congestion, rhinorrhea, sinus pain, ear pain Cardiovascular: No chest pain, palpitations, or leg edema Respiratory: No shortness of breath, wheezing, cough GI: No abdominal pain, nausea, vomiting, diarrhea, constipation, melena, hematochezia : No dysuria, hematuria, increased urinary frequency, decreased urinary output MSK: No myalgia, back pain. see hpi Neuro: No headaches, weakness, paresthesias Skin: No rashes or lesions EXAM: Constitutional - Awake and Alert, No apparent distress Eyes - PERRL Cardiovascular - S1S2, RRR Respiratory - Normal lung expansion, Normal respiratory effort, No respiratory distress Skin - Warm/Dry Neurological - Alert & oriented x3 Psychological - Appropriate affect [facility] Medical History (Updated 09/19/24 @ 08:22 by ADEN Rendon) HTN (hypertension) Hyperlipidemia Surgical History (Updated 08/29/24 @ 09:02 by Mary Kate Sharif MD) History of colonoscopy (~09/28/19) Family History Mother Lung cancer Social History Household Members: Spouse Patient Tobacco Use Status: Never used Tobacco service: No Current occupational status: retired Questionnaire Thrive Questionnaire Date Thrive assessed: 07/19/23 Physical exam (Primary Care) Vital Signs: Last Vital Signs Temp 98.1 F 09/19/24 07:59 Pulse 63 09/19/24 07:59 Resp 14 09/19/24 07:59 BP 158/76 H 09/19/24 07:59 Pulse Ox 99 09/19/24 07:59 Oxygen Delivery Method Room Air 09/19/24 07:59 BMI result Body Mass Index 29.0 Tobacco/Smoking Status: Tobacco use Status Patient Tobacco Use Status Never used Tobacco 09/19/24 07:56 Thrive Assessment: Date of Thrive Assessment Date Thrive assessed 07/19/23 09/19/24 07:56 Coding Level of Care Code Est Pt Level 4 (16526) Complex EM visit Add On G2211 Diagnoses Pulmonary embolism, bilateral I26.99 Abdominal pain, chronic, right lower quadrant R10.31; G89.29 Polyarthralgia M25.50 HTN (hypertension) I10 Assessment & Plan Assessment & Plan (1) Pulmonary embolism, bilateral: Code(s): I26.99 - Other pulmonary embolism without acute cor pulmonale Category: Medical Plan: Stable. Recommend discussing genetic testing with Hematology and his insurance company as this would modify his anticoagulation recommendations. Continue Eliquis 2.5 mg b.i.d.. (2) Abdominal pain, chronic, right lower quadrant: Code(s): R10.31 - Right lower quadrant pain; G89.29 - Other chronic pain Category: Medical Plan: .. Given contrast study, will evaluate renal function CT abdomen/pelvis pending for October 10. He does still get the right lower quadrant pains (3) Polyarthralgia: Code(s): M25.50 - Pain in unspecified joint Category: Medical Plan: Referral replaced to [facility] at the request of patient's. Continue analgesics as needed (4) HTN (hypertension): Code(s): I10 - Essential (primary) hypertension Category: Medical Plan: Overall uncontrolled but 138/84 on recheck. Do suspect there is a component of white coat hypertension. Recommend he check his blood pressures at home once daily or every other day and notify the office if blood pressures remain elevated above 140/90. Should blood pressures remain elevated, should consider antihypertensive therapy. Continue low-sodium diet as well as increased exercise. Limit caffeine. Plan Follow-up in 6 months with labs to be completed prior to visit Orders: Orders Complete Blood Count Auto Diff 6 Months E78.5 - Hyperlipidemia, unspecified, I10 - Essential (primary) hypertension Basic Metabolic Panel 6 Months E78.5 - Hyperlipidemia, unspecified, I10 - Essential (primary) hypertension Lipid Panel 6 Months E78.5 - Hyperlipidemia, unspecified, I10 - Essential (primary) hypertension Medications: Changed From apixaban (Eliquis) 5 mg PO BID 180 tabs 2RF To apixaban (Eliquis) 2.5 mg (1/2 x 5 mg) PO BID 90 tabs 1RF
[2024-09-19 07:59] VITALS: BP 158/76; PULSE 63; RESP 14; TEMP 36.7; O2SAT 99; BMI 29.0
[2024-09-19 08:16] VITALS: BP 138/84
== END 2024-09-19 08:20 | disposition home or self-care (01) ==
LOC: HO.HMCHD 07:46
PROVIDERS: PCP Internal Medicine; Visit Provider Physician Assistant
DX: I26.99 Other pulmonary embolism without acute cor pulmonale (principal); R10.31 Right lower quadrant pain; G89.29 Other chronic pain; M25.50 Pain in unspecified joint; I10 Essential (primary) hypertension

== ENCOUNTER 2024-10-10 11:57 | Outpatient (REF) | payer BC, SELFPAY ==
--- NOTE | ~2024-10-10 | CT_ITS ---
EXAMINATION: CT ABDOMEN PELVIS WITH IV CONTRAST HISTORY: R10.31 - Right lower quadrant pain COMPARISON: There are no prior studies for available comparison. TECHNIQUE: CT scan of the abdomen and pelvis was performed following administration of 85 mL Omnipaque 350 using standard departmental protocol. Coronal and sagittal reformatted images were generated and reviewed. The patient received oral contrast material. This CT exam was performed with one or more of the following dose reduction techniques: automated exposure control, adjustment of the mA and/or kV according to patient size, use of iterative reconstruction technique. DLP: 439 mGy-cm FINDINGS: LOWER CHEST: The visualized lung bases are clear. There is no pleural effusion. CARDIOVASCULATURE: The heart is normal in size. There is no pericardial effusion. LIVER: The liver is normal in size and contour. There are scattered subcentimeter hypodense foci within the liver which may represent cysts, but are too small to accurately characterize. The hepatic and portal veins are patent. GALLBLADDER / BILE DUCTS: The gallbladder is unremarkable. There is no intra or extrahepatic biliary ductal dilatation. SPLEEN: The spleen is normal in size. No focal splenic lesion is identified. PANCREAS: The pancreas is unremarkable in appearance. ADRENAL GLANDS: Within normal limits. KIDNEYS/RETROPERITONEUM: No renal calculi are identified. There is no hydronephrosis. There is a 2.6 cm cyst at the lower pole of the left kidney. LYMPH NODES: No abdominal or pelvic lymphadenopathy. VASCULATURE: The abdominal aorta demonstrates atherosclerotic calcification, but is normal in caliber. MESENTERY/PERITONEUM: No free fluid. No masses. There is no free intraperitoneal gas. STOMACH: The stomach is collapsed, limiting evaluation. SMALL BOWEL: The small bowel is normal in caliber. COLON: The colon is unremarkable. APPENDIX: Normal. URINARY BLADDER/PELVIC ORGANS: The urinary bladder is unremarkable. There are calcifications of the prostate. BONES / SOFT TISSUES: There is degenerative disc disease of the spine. CT/CT abdomen pelvis w IV con IMPRESSION: No inflammatory process is identified. Incidental findings as discussed above. Electronically signed by: Eliezer Lei MD 10/10/2024 02:26 PM EDT
--- OUTSIDE RECORDS SUMMARY | 2024-10-10 12:40 | XMS_ITS | Patient Health Record ---
Author Organization [facility] Address [address] [place] [address] Care Team Providers Care Endodontist Name Role Phone Lamonte Nuñez MD Primary Care Provider Lobo Voss Jr Unavailable Allergies Allergen (clinical drug ingredient) Drug/Non Drug Allergy documented on EMR Reaction Allergy Type Onset Date Status amoxicillin Amoxicillin hives Drug Allergy Act yessy Reason For Referral No Information Medications Medication SIG (Take, Route, Frequency, Duration) Notes Start Date End Date Status Simvastatin 20 MG 1 tablet in the even ing Orally Once a day Active Doxycycline Hyclate 100 MG 1 capsule Ora lly every 12 hrs 08/15/2019 Active MiraLax (colon prep) 8.3 ounce ((238) grams mixed with Gatorade or Crystal Light orally begin at 5:00 p.m. the day before the procedure for 1 day 08/15/2019 Active Social History Tobacco Use: Social History Observation Description Date Details (start date - stop date) Former Smoker NA - NA Tobacco Use/Smoking Question Answer Notes Patient is a former smoker How long has it been since you last smoked? > 10 years Alcohol Screen Question Answer Notes Did you have a drink containing alcohol in the p ast year? No Points 0 Interpretation Negative Problems Problem Type SNOMED Code ICD Code Onset Dates Problem Status W/U Status Risk Notes Problem 605740799 Colon cancer screening (Z12.11) Active confirmed Problem 731039301 Encounter for other preprocedural examination (Z01.818) Active confirmed Plan Of Treatment Future Test Test Name Order Date COLONOSCOPY 08/15/2019 Insurance Providers Payer Name Payer Address Payer Phone Subscriber Number Group Number Insured Name Patient Relationship to Insured Coverage Start Date Coverage End Date [facility] [address] [place] [phone] [id number] MERISSA BONILLA Self - patient is the insured Medical (General) History Medical History History ICD Code elevated cholesterol Surgical History Surgery Date(Month/Year) right knee arthroscopy
[2024-10-10] MEDS: iohexoL 350 MG/ML 100 ML INFUS..BTL IV (14:16)
[2024-10-10] MEDS: Barium Sulfate Oral (Berry) 450 ML ORAL.SUSP 900 ML PO (14:16)
== END 2024-10-10 11:58 | disposition home or self-care (01) ==
LOC: HO.CT 11:57
PROVIDERS: PCP Physician Assistant; Visit Provider Physician Assistant
DX: R10.31 Right lower quadrant pain (principal); G89.29 Other chronic pain; M25.50 Pain in unspecified joint
CPT/HCPCS: 74177; Q9967

== ENCOUNTER → 2024-10-10 12:04 | Outpatient (BNV) | payer BC, SELFPAY | PROVIDERS: PCP Physician Assistant; Visit Provider Radiology Diagnostic Radiology | DX: R10.31 Right lower quadrant pain (principal) | CPT/HCPCS: 74177 ==